=== PATIENT | female | born 1935 | race African-American/Black ===

== ENCOUNTER 2020-03-17 19:49 | Inpatient (IN) | payer MEDICARE, OTHER ==
[~2020-03-17] VITALS: Ht 157.5 cm; Wt 56.7 kg
[2020-03-17] MEDS ORDERED: SODIUM CHLORIDE 0.9% 1,000 ML IV ONE (20:30)
[2020-03-18 00:10] LABS: BASOPHILS % 0.1 % (0.0-2.0); HEMATOCRIT. 36.7 % (36.0-48.0); HEMOGLOBIN. 11.9 g/dL (12.0-16.0); MEAN CORPUSCULAR HEMOGLOBIN 24.8 pg (28.0-32.0); MEAN CORPUSCULAR VOLUME 76.3 fL (81.0-99.0); MEAN PLATELET VOLUME 7.8 fl (7.4-10.4); MONOCYTES % 5.3 % (2.0-8.0); NEUTROPHILS % 83.6 % (40.0-76.0); PLATELET 404 x1000/uL (130-400); RED BLOOD CELL COUNT 4.81 mill/uL (4.2-5.4); RED CELL DISTRIBUTION WIDTH 14.8 % (11.6-14.6)
[2020-03-18 00:14] LABS: CHLORIDE 97 mEq/L (98-107)
[2020-03-18 00:19] LABS: INR 1.1; PARTIAL THROMBOPLASTIN TIME 32.2 sec (23.4-31.0); PROTHROMBIN TIME 11.2 sec (9.6-11.0)
[2020-03-18 09:00] LABS: CLARITY URINE CLEAR (CLEAR); COLOR URINE YELLOW (YELLOW); KETONES URINE 2+ (NEGATIVE); LEUKOCYTE ESTERASE URINE NEGATIVE (NEGATIVE); NITRITE URINE NEGATIVE (NEGATIVE); OCCULT BLOOD URINE TRACE (NEGATIVE); PROTEIN URINE 2+ (NEGATIVE); SPECIFIC GRAVITY URINE 1.047 (1.005-1.030); UROBILINOGEN URINE 0.2 E.U./dL (0.2-1.0)
[2020-03-18] MEDS ORDERED: ONDANSETRON HCL 4MG/2ML INJ IV PRN (12:00)
[2020-03-18] MEDS ORDERED: DOCUSATE SODIUM 100MG CAPSULE PO PRN (12:00)
[2020-03-18] MEDS ORDERED: IPRATROPIUM/ALBUTEROL 0.5-3(2.5)MG/3ML NEB HHN SCH (13:00)
[2020-03-18 13:17] LABS: BASOPHILS % 0.3 % (0.0-2.0); HEMATOCRIT. 33.1 % (36.0-48.0); HEMOGLOBIN. 10.8 g/dL (12.0-16.0); LYMPHOCYTES % 9.5 % (20.0-50.0); MEAN CORPUSCULAR HEMOGLOBIN 24.8 pg (28.0-32.0); MEAN PLATELET VOLUME 7.2 fl (7.4-10.4); NEUTROPHILS % 84.2 % (40.0-76.0); PLATELET 354 x1000/uL (130-400); RED BLOOD CELL COUNT 4.36 mill/uL (4.2-5.4); RED CELL DISTRIBUTION WIDTH 14.6 % (11.6-14.6)
[2020-03-18 13:23] LABS: CHLORIDE 102 mEq/L (98-107)
[2020-03-18 14:00] VITALS: BP 116/69
[2020-03-18 15:10] VITALS: BP 135/69
[2020-03-18 16:00] VITALS: BP 126/69
[2020-03-18] MEDS: CALCIUM CARBONATE 1250MG TABLET (500MG ELEMENTAL CALCIUM) PO SCH ×2 (17:01→18:09)
[2020-03-18] MEDS: CHOLECALCIFEROL (D3) 1000 UNIT TABLET PO SCH (17:01)
[2020-03-18] MEDS: LEVOFLOXACIN 500MG PREMIX 100 ML IV SCH (18:08)
[2020-03-18] MEDS: METOPROLOL TARTRATE 50MG TABLET PO SCH ×2 (18:09→23:49)
[2020-03-18] MEDS: DEXT 5%/0.45% NACL 1000ML 1,000 ML IV SCH (18:10)
[2020-03-18] MEDS: METFORMIN HCL 500MG TABLET PO SCH (18:14)
[2020-03-18 20:00] VITALS: BP 123/67
[2020-03-18] MEDS ORDERED: ENOXAPARIN 40MG/0.4ML SYR SUBCUT SCH (21:00)
[2020-03-18] MEDS: ATORVASTATIN CALCIUM 20MG TABLET PO SCH (23:48)
[2020-03-18] MEDS: METHYLPREDNISOLONE SOD SUCC 40 MG/ML VIAL IV SCH (23:49)
[2020-03-18] MEDS: ENOXAPARIN 30MG/0.3ML SYR SUBCUT SCH (23:55)
[2020-03-19] VITALS: BP 125/66
[2020-03-19] MEDS ORDERED: DEXTROSE 50% WATER 50ML SYRINGE IV PRN (01:45)
[2020-03-19 04:55] VITALS: BP 111/66
[2020-03-19] MEDS: BLOOD SUGAR DIAGNOSTIC STRIP TEST SCH ×3 (06:57→18:04)
[2020-03-19 07:46] LABS: HEMATOCRIT. 31.4 % (36.0-48.0); HEMOGLOBIN. 10.3 g/dL (12.0-16.0); MEAN CORPUSCULAR HEMOGLOBIN 24.8 pg (28.0-32.0); MEAN CORPUSCULAR VOLUME 75.5 fL (81.0-99.0); MEAN PLATELET VOLUME 8.1 fl (7.4-10.4); PLATELET 365 x1000/uL (130-400); RED BLOOD CELL COUNT 4.16 mill/uL (4.2-5.4); RED CELL DISTRIBUTION WIDTH 14.7 % (11.6-14.6)
[2020-03-19] MEDS: INSULIN LISPRO 100 UNITS/ML SUBCUT SCH ×3 (07:51→18:03)
[2020-03-19 07:59] LABS: CHLORIDE 100 mEq/L (98-107)
[2020-03-19 08:00] VITALS: BP 127/77
[2020-03-19 08:02] LABS: AMYLASE 85 IU/L (25-115)
[2020-03-19] MEDS: CHOLECALCIFEROL (D3) 1000 UNIT TABLET PO SCH (09:44)
[2020-03-19] MEDS: CALCIUM CARBONATE 1250MG TABLET (500MG ELEMENTAL CALCIUM) PO SCH ×3 (09:44→18:02)
[2020-03-19] MEDS: METFORMIN HCL 500MG TABLET PO SCH ×2 (09:44→18:02)
[2020-03-19] MEDS: METHYLPREDNISOLONE SOD SUCC 40 MG/ML VIAL IV SCH ×2 (09:44→22:03)
[2020-03-19] MEDS: LOSARTAN POTASSIUM 100 MG TABLET PO SCH (09:45)
[2020-03-19] MEDS: METOPROLOL TARTRATE 50MG TABLET PO SCH ×2 (09:45→22:03)
[2020-03-19 09:47] LABS: PLATELET ESTIMATE NORMAL
[2020-03-19 12:00] VITALS: BP 128/78
[2020-03-19] MEDS: LEVOFLOXACIN 500MG PREMIX 100 ML IV SCH (14:48)
[2020-03-19 16:00] VITALS: BP 128/84
[2020-03-19 20:00] VITALS: BP 120/81
[2020-03-19] MEDS: ATORVASTATIN CALCIUM 20MG TABLET PO SCH (22:03)
[2020-03-19] MEDS: ENOXAPARIN 30MG/0.3ML SYR SUBCUT SCH (22:04)
[2020-03-20] VITALS: BP_SYST 117; BP_SYST 120; BP_DIAS 66; BP_DIAS 81
[2020-03-20] MEDS: BLOOD SUGAR DIAGNOSTIC STRIP TEST SCH ×3 (00:18→17:51)
[2020-03-20] MEDS: INSULIN LISPRO 100 UNITS/ML SUBCUT SCH ×4 (00:26→18:05)
[2020-03-20 04:00] VITALS: BP 125/75
[2020-03-20] MEDS: DEXT 5%/0.45% NACL 1000ML 1,000 ML IV SCH (05:01)
[2020-03-20 06:53] LABS: HEMATOCRIT. 32.8 % (36.0-48.0); HEMOGLOBIN. 10.9 g/dL (12.0-16.0); MEAN CORPUSCULAR VOLUME 75.5 fL (81.0-99.0); MEAN PLATELET VOLUME 7.4 fl (7.4-10.4); PLATELET 412 x1000/uL (130-400); RED BLOOD CELL COUNT 4.35 mill/uL (4.2-5.4); RED CELL DISTRIBUTION WIDTH 14.7 % (11.6-14.6)
[2020-03-20 07:08] LABS: CHLORIDE 102 mEq/L (98-107)
[2020-03-20 08:00] VITALS: BP 123/71
[2020-03-20] MEDS: METFORMIN HCL 500MG TABLET PO SCH ×2 (10:09→18:03)
[2020-03-20] MEDS: CALCIUM CARBONATE 1250MG TABLET (500MG ELEMENTAL CALCIUM) PO SCH ×3 (10:09→16:21)
[2020-03-20] MEDS: METOPROLOL TARTRATE 50MG TABLET PO SCH ×2 (10:09→21:31)
[2020-03-20] MEDS: METHYLPREDNISOLONE SOD SUCC 40 MG/ML VIAL IV SCH ×2 (10:09→16:21)
[2020-03-20] MEDS: CHOLECALCIFEROL (D3) 1000 UNIT TABLET PO SCH (10:10)
[2020-03-20] MEDS: LOSARTAN POTASSIUM 100 MG TABLET PO SCH (10:10)
[2020-03-20 12:00] VITALS: BP 120/74
[2020-03-20] MEDS: ACETAMINOPHEN 325MG TABLET PO PRN (14:30)
[2020-03-20] MEDS: LEVOFLOXACIN 500MG PREMIX 100 ML IV SCH (14:31)
[2020-03-20 16:00] VITALS: BP 128/71
[2020-03-20 18:29] LABS: BG CARBOXYHEMOGLOBIN 0.3 % (0.5-1.5); BG DEOXYHEMOGLOBIN 3.9 % (0.0-5.0); BG FRACTION INSPIRED OXYGEN 99.9; BG HCO3 ACT 22.6 mmol/L (22.0-26.0); BG OXYGEN SATURATION 96.1 % (92.0-98.5); BG OXYHEMOGLOBIN 95.8 % (94.0-97.0); BG PH 7.441 (7.350-7.450); BG PO2 79.7 mmHg (75.0-100.0); BG SAMPLE SITE LEFT BRACHIAL; BG TOTAL HEMOGLOBIN 11.2 g/dL (12.0-18.0); BG VENT MODE MASK - NRB
[2020-03-20 20:00] VITALS: BP 115/75
[2020-03-20] MEDS: ATORVASTATIN CALCIUM 20MG TABLET PO SCH (21:31)
[2020-03-20] MEDS: ENOXAPARIN 30MG/0.3ML SYR SUBCUT SCH (21:31)
[2020-03-20 22:05] LABS: PLATELET ESTIMATE INCREASED
[2020-03-21] VITALS: BP 106/65
[2020-03-21] MEDS: METHYLPREDNISOLONE SOD SUCC 40 MG/ML VIAL IV SCH ×4 (00:29→22:08)
[2020-03-21] MEDS: INSULIN LISPRO 100 UNITS/ML SUBCUT SCH ×4 (00:30→18:38)
[2020-03-21] MEDS: BLOOD SUGAR DIAGNOSTIC STRIP TEST SCH ×4 (00:31→18:24)
[2020-03-21 04:00] VITALS: BP 126/72
[2020-03-21 08:00] VITALS: BP 152/74
[2020-03-21] MEDS: LOSARTAN POTASSIUM 100 MG TABLET PO SCH (09:00)
[2020-03-21] MEDS: METOPROLOL TARTRATE 50MG TABLET PO SCH ×2 (09:00→22:08)
[2020-03-21] MEDS: METFORMIN HCL 500MG TABLET PO SCH ×2 (09:10→18:32)
[2020-03-21 11:12] LABS: HEMATOCRIT. 35.1 % (36.0-48.0); HEMOGLOBIN. 11.3 g/dL (12.0-16.0); MEAN CORPUSCULAR HEMOGLOBIN 24.3 pg (28.0-32.0); MEAN CORPUSCULAR VOLUME 75.5 fL (81.0-99.0); MEAN PLATELET VOLUME 7.6 fl (7.4-10.4); PLATELET 445 x1000/uL (130-400); RED BLOOD CELL COUNT 4.65 mill/uL (4.2-5.4); RED CELL DISTRIBUTION WIDTH 14.9 % (11.6-14.6)
[2020-03-21 11:25] LABS: CHLORIDE 102 mEq/L (98-107)
[2020-03-21 12:00] VITALS: BP 109/68
[2020-03-21 12:38] LABS: BG BASE EXCESS -1.6 mmol/L (-2.0-2.0); BG CARBOXYHEMOGLOBIN 0.3 % (0.5-1.5); BG DEOXYHEMOGLOBIN 2.7 % (0.0-5.0); BG HCO3 ACT 21.8 mmol/L (22.0-26.0); BG METHEMOGLOBIN 0.2 % (0.0-1.5); BG OXYGEN SATURATION 97.3 % (92.0-98.5); BG OXYHEMOGLOBIN 96.8 % (94.0-97.0); BG PCO2 32.8 mmHg (35.0-45.0); BG PH 7.441 (7.350-7.450); BG PO2 96.6 mmHg (75.0-100.0); BG SAMPLE SITE RIGHT BRACHIAL; BG VENT MODE MASK - NRB
[2020-03-21] MEDS: CALCIUM CARBONATE 1250MG TABLET (500MG ELEMENTAL CALCIUM) PO SCH ×3 (13:00→18:32)
[2020-03-21] MEDS: LEVOFLOXACIN 500MG PREMIX 100 ML IV SCH (13:00)
[2020-03-21] MEDS: CHOLECALCIFEROL (D3) 1000 UNIT TABLET PO SCH (13:28)
[2020-03-21] MEDS: DEXT 5%/0.45% NACL 1000ML 1,000 ML IV SCH (13:30)
[2020-03-21 16:00] VITALS: BP 86/48
[2020-03-21 20:00] VITALS: BP 153/91
[2020-03-21] MEDS: ATORVASTATIN CALCIUM 20MG TABLET PO SCH (22:07)
[2020-03-21] MEDS: ENOXAPARIN 30MG/0.3ML SYR SUBCUT SCH (22:09)
[2020-03-21 22:11] LABS: PLATELET ESTIMATE INCREASED
[2020-03-22] VITALS: BP 130/75
[2020-03-22] MEDS: INSULIN LISPRO 100 UNITS/ML SUBCUT SCH ×4 (00:33→18:00)
[2020-03-22] MEDS: BLOOD SUGAR DIAGNOSTIC STRIP TEST SCH ×4 (00:33→18:00)
[2020-03-22 04:00] VITALS: BP 138/102
[2020-03-22] MEDS: METHYLPREDNISOLONE SOD SUCC 40 MG/ML VIAL IV SCH ×3 (06:29→22:56)
[2020-03-22] MEDS: DEXT 5%/0.45% NACL 1000ML 1,000 ML IV SCH (06:30)
[2020-03-22 06:46] LABS: HEMATOCRIT. 31.8 % (36.0-48.0); HEMOGLOBIN. 10.7 g/dL (12.0-16.0); MEAN CORPUSCULAR HEMOGLOBIN 25.2 pg (28.0-32.0); MEAN CORPUSCULAR VOLUME 74.8 fL (81.0-99.0); MEAN PLATELET VOLUME 7.4 fl (7.4-10.4); PLATELET 472 x1000/uL (130-400); RED BLOOD CELL COUNT 4.25 mill/uL (4.2-5.4); RED CELL DISTRIBUTION WIDTH 14.7 % (11.6-14.6)
[2020-03-22 07:31] LABS: CHLORIDE 103 mEq/L (98-107)
[2020-03-22] MEDS: LOSARTAN POTASSIUM 100 MG TABLET PO SCH (10:49)
[2020-03-22] MEDS: METFORMIN HCL 500MG TABLET PO SCH ×2 (10:49→19:06)
[2020-03-22] MEDS: CHOLECALCIFEROL (D3) 1000 UNIT TABLET PO SCH (10:49)
[2020-03-22] MEDS: CALCIUM CARBONATE 1250MG TABLET (500MG ELEMENTAL CALCIUM) PO SCH ×3 (10:50→19:07)
[2020-03-22] MEDS: METOPROLOL TARTRATE 50MG TABLET PO SCH ×2 (10:55→22:57)
[2020-03-22 12:00] VITALS: BP 130/66
[2020-03-22] MEDS: SODIUM CHLORIDE 0.45% 1,000 ML IV SCH (14:34)
[2020-03-22] MEDS: LEVOFLOXACIN 500MG PREMIX 100 ML IV SCH (14:34)
[2020-03-22 16:00] VITALS: BP 133/69
[2020-03-22 16:21] LABS: PLATELET ESTIMATE INCREASED
[2020-03-22 20:00] VITALS: BP 115/70
[2020-03-22 22:01] LABS: CHLORIDE 104 mEq/L (98-107)
[2020-03-22] MEDS: ATORVASTATIN CALCIUM 20MG TABLET PO SCH (22:57)
[2020-03-22] MEDS: ENOXAPARIN 40MG/0.4ML SYR SUBCUT SCH (22:57)
[2020-03-23] VITALS: BP 127/72
[2020-03-23] MEDS: INSULIN LISPRO 100 UNITS/ML SUBCUT SCH ×4 (01:28→17:58)
[2020-03-23 04:00] VITALS: BP 132/83
[2020-03-23] MEDS: BLOOD SUGAR DIAGNOSTIC STRIP TEST SCH ×4 (06:00→17:44)
[2020-03-23 06:45] LABS: HEMATOCRIT. 32.9 % (36.0-48.0); MEAN CORPUSCULAR VOLUME 74.8 fL (81.0-99.0); MEAN PLATELET VOLUME 7.5 fl (7.4-10.4); PLATELET 445 x1000/uL (130-400); RED CELL DISTRIBUTION WIDTH 14.7 % (11.6-14.6)
[2020-03-23] MEDS: METHYLPREDNISOLONE SOD SUCC 40 MG/ML VIAL IV SCH ×2 (07:25→13:21)
[2020-03-23 08:00] VITALS: BP 132/80
[2020-03-23] MEDS: NATEGLINIDE 60MG TABLET PO SCH ×3 (08:10→18:10)
[2020-03-23] MEDS: LOSARTAN POTASSIUM 100 MG TABLET PO SCH (10:04)
[2020-03-23] MEDS: METFORMIN HCL 500MG TABLET PO SCH ×2 (10:04→17:52)
[2020-03-23] MEDS: CALCIUM CARBONATE 1250MG TABLET (500MG ELEMENTAL CALCIUM) PO SCH ×3 (10:04→17:52)
[2020-03-23] MEDS: METOPROLOL TARTRATE 50MG TABLET PO SCH (10:05)
[2020-03-23] MEDS: CHOLECALCIFEROL (D3) 1000 UNIT TABLET PO SCH (10:05)
[2020-03-23] MEDS ORDERED: LEVOFLOXACIN 250MG PREMIX 50 ML IV SCH (14:00)
[2020-03-23] MEDS: SODIUM CHLORIDE 0.45% 1,000 ML IV SCH (14:00)
[2020-03-23 20:00] VITALS: BP 133/66
[2020-03-23 21:22] LABS: PLATELET ESTIMATE INCREASED
[2020-03-24] VITALS: BP 119/83
[2020-03-24] MEDS: ATORVASTATIN CALCIUM 20MG TABLET PO SCH ×2 (00:16→22:00)
[2020-03-24] MEDS: METHYLPREDNISOLONE SOD SUCC 40 MG/ML VIAL IV SCH ×4 (00:17→22:00)
[2020-03-24] MEDS: METOPROLOL TARTRATE 50MG TABLET PO SCH ×3 (00:17→21:00)
[2020-03-24] MEDS: ENOXAPARIN 40MG/0.4ML SYR SUBCUT SCH ×2 (00:19→22:00)
[2020-03-24] MEDS: BLOOD SUGAR DIAGNOSTIC STRIP TEST SCH ×4 (00:19→18:00)
[2020-03-24] MEDS: INSULIN LISPRO 100 UNITS/ML SUBCUT SCH ×4 (00:20→19:04)
[2020-03-24 04:00] VITALS: BP 118/68
[2020-03-24] MEDS: METFORMIN HCL 500MG TABLET PO SCH ×2 (07:05→19:01)
[2020-03-24 08:00] VITALS: BP 119/71
[2020-03-24 08:01] LABS: HEMATOCRIT. 34.4 % (36.0-48.0); HEMOGLOBIN. 11.2 g/dL (12.0-16.0); MEAN CORPUSCULAR HEMOGLOBIN 24.7 pg (28.0-32.0); MEAN CORPUSCULAR VOLUME 75.7 fL (81.0-99.0); MEAN PLATELET VOLUME 7.8 fl (7.4-10.4); PLATELET 481 x1000/uL (130-400); RED BLOOD CELL COUNT 4.55 mill/uL (4.2-5.4); RED CELL DISTRIBUTION WIDTH 14.6 % (11.6-14.6)
[2020-03-24] MEDS: NATEGLINIDE 60MG TABLET PO SCH ×3 (08:10→18:10)
[2020-03-24 08:18] LABS: CHLORIDE 98 mEq/L (98-107)
[2020-03-24] MEDS: CALCIUM CARBONATE 1250MG TABLET (500MG ELEMENTAL CALCIUM) PO SCH ×3 (09:43→19:01)
[2020-03-24] MEDS: LOSARTAN POTASSIUM 100 MG TABLET PO SCH (09:45)
[2020-03-24] MEDS: CHOLECALCIFEROL (D3) 1000 UNIT TABLET PO SCH (09:45)
[2020-03-24 11:38] LABS: BG BASE EXCESS 1.1 mmol/L (-2.0-2.0); BG CARBOXYHEMOGLOBIN 0.3 % (0.5-1.5); BG DEOXYHEMOGLOBIN 1.6 % (0.0-5.0); BG FRACTION INSPIRED OXYGEN 100; BG HCO3 ACT 24.1 mmol/L (22.0-26.0); BG METHEMOGLOBIN 0.3 % (0.0-1.5); BG OXYGEN SATURATION 98.4 % (92.0-98.5); BG OXYHEMOGLOBIN 97.8 % (94.0-97.0); BG PH 7.482 (7.350-7.450); BG PO2 126.9 mmHg (75.0-100.0); BG SAMPLE SITE RIGHT RADIAL; BG TOTAL HEMOGLOBIN 11.4 g/dL (12.0-18.0); BG VENT MODE MASK - NRB
[2020-03-24 12:00] VITALS: BP 139/81
[2020-03-24 16:00] VITALS: BP 121/71
[2020-03-24] MEDS: SODIUM CHLORIDE 0.45% 1,000 ML IV SCH (19:03)
[2020-03-24 19:19] LABS: PLATELET ESTIMATE INCREASED
[2020-03-24 20:00] VITALS: BP 101/63
[2020-03-24 22:13] LABS: BG BASE EXCESS 3.9 mmol/L (-2.0-2.0); BG CARBOXYHEMOGLOBIN 0.3 % (0.5-1.5); BG FRACTION INSPIRED OXYGEN 60; BG HCO3 ACT 27.5 mmol/L (22.0-26.0); BG METHEMOGLOBIN 0.2 % (0.0-1.5); BG OXYHEMOGLOBIN 94.5 % (94.0-97.0); BG PCO2 37.6 mmHg (35.0-45.0); BG PH 7.482 (7.350-7.450); BG PO2 71.8 mmHg (75.0-100.0); BG SAMPLE SITE RIGHT RADIAL; BG TOTAL HEMOGLOBIN 11.9 g/dL (12.0-18.0); BG VENT MODE MASK - SIMPLE
[2020-03-25] VITALS: BP 123/60
[2020-03-25] MEDS: BLOOD SUGAR DIAGNOSTIC STRIP TEST SCH ×3 (00:05→12:00)
[2020-03-25] MEDS: INSULIN LISPRO 100 UNITS/ML SUBCUT SCH ×3 (00:22→13:32)
[2020-03-25 04:00] VITALS: BP 109/67
[2020-03-25 05:36] LABS: CHLORIDE 97 mEq/L (98-107)
[2020-03-25] MEDS: ALBUTEROL 6.7GM HFA INHALER ORI SCH ×3 (06:00→18:00)
[2020-03-25] MEDS: METHYLPREDNISOLONE SOD SUCC 40 MG/ML VIAL IV SCH ×2 (06:03→13:25)
[2020-03-25 07:04] LABS: HEMATOCRIT. 34.7 % (36.0-48.0); HEMOGLOBIN. 11.1 g/dL (12.0-16.0); MEAN CORPUSCULAR HEMOGLOBIN 24.5 pg (28.0-32.0); MEAN CORPUSCULAR VOLUME 76.6 fL (81.0-99.0); MEAN PLATELET VOLUME 7.7 fl (7.4-10.4); PLATELET 455 x1000/uL (130-400); RED BLOOD CELL COUNT 4.52 mill/uL (4.2-5.4); RED CELL DISTRIBUTION WIDTH 14.5 % (11.6-14.6)
[2020-03-25 08:00] VITALS: BP 140/87
[2020-03-25] MEDS: ALENDRONATE SODIUM 35MG TABLET PO SCH (09:00)
[2020-03-25] MEDS: CHOLECALCIFEROL (D3) 1000 UNIT TABLET PO SCH (09:16)
[2020-03-25] MEDS: METFORMIN HCL 500MG TABLET PO SCH ×2 (09:16→17:52)
[2020-03-25] MEDS: METOPROLOL TARTRATE 50MG TABLET PO SCH (09:17)
[2020-03-25] MEDS: CALCIUM CARBONATE 1250MG TABLET (500MG ELEMENTAL CALCIUM) PO SCH ×3 (09:17→17:52)
[2020-03-25] MEDS: LOSARTAN POTASSIUM 100 MG TABLET PO SCH (09:17)
[2020-03-25 12:00] VITALS: BP 132/81
[2020-03-25 16:44] LABS: BG BASE EXCESS 2.4 mmol/L (-2.0-2.0); BG CARBOXYHEMOGLOBIN 0.6 % (0.5-1.5); BG DEOXYHEMOGLOBIN 9.8 % (0.0-5.0); BG HCO3 ACT 24.2 mmol/L (22.0-26.0); BG METHEMOGLOBIN 0.2 % (0.0-1.5); BG OXYGEN SATURATION 90.1 % (92.0-98.5); BG OXYHEMOGLOBIN 89.4 % (94.0-97.0); BG PCO2 28.8 mmHg (35.0-45.0); BG PH 7.542 (7.350-7.450); BG PO2 52.5 mmHg (75.0-100.0); BG SAMPLE SITE RIGHT RADIAL; BG TOTAL HEMOGLOBIN 12.1 g/dL (12.0-18.0); BG VENT MODE ROOM AIR
[2020-03-25] MEDS: SODIUM CHLORIDE 0.45% 1,000 ML IV SCH (17:57)
[2020-03-25 19:37] LABS: PLATELET ESTIMATE INCREASED
[2020-03-25 20:00] VITALS: BP 111/69
[2020-03-26] VITALS (7 sets, daily range): BP systolic 113–142; BP diastolic 73–91
[2020-03-26] MEDS: METOPROLOL TARTRATE 50MG TABLET PO SCH ×3 (00:22→22:08)
[2020-03-26] MEDS: ENOXAPARIN 40MG/0.4ML SYR SUBCUT SCH ×2 (00:22→22:09)
[2020-03-26] MEDS: ATORVASTATIN CALCIUM 20MG TABLET PO SCH ×2 (00:22→22:08)
[2020-03-26] MEDS: METHYLPREDNISOLONE SOD SUCC 40 MG/ML VIAL IV SCH ×2 (00:22→07:24)
[2020-03-26] MEDS: BLOOD SUGAR DIAGNOSTIC STRIP TEST SCH ×4 (00:23→17:34)
[2020-03-26] MEDS: INSULIN LISPRO 100 UNITS/ML SUBCUT SCH ×4 (00:45→17:57)
[2020-03-26] MEDS: CALCIUM CARBONATE 1250MG TABLET (500MG ELEMENTAL CALCIUM) PO SCH ×3 (10:11→17:46)
[2020-03-26] MEDS: METFORMIN HCL 500MG TABLET PO SCH ×2 (10:11→17:46)
[2020-03-26] MEDS: LOSARTAN POTASSIUM 100 MG TABLET PO SCH (10:12)
[2020-03-26] MEDS: CHOLECALCIFEROL (D3) 1000 UNIT TABLET PO SCH (10:12)
[2020-03-26] MEDS ORDERED: PREDNISONE 20MG TABLET PO SCH (11:15)
[2020-03-26] MEDS: ALBUTEROL 6.7GM HFA INHALER ORI SCH ×2 (12:00→18:00)
[2020-03-26] MEDS: SODIUM CHLORIDE 0.45% 1,000 ML IV SCH (13:17)
[2020-03-26] MEDS: PREDNISONE 20MG TABLET PO SCH (17:46)
[2020-03-27] VITALS: BP 132/54
[2020-03-27] MEDS: BLOOD SUGAR DIAGNOSTIC STRIP TEST SCH ×4 (00:53→17:28)
[2020-03-27] MEDS: ALBUTEROL 6.7GM HFA INHALER ORI SCH ×2 (00:58→06:35)
[2020-03-27] MEDS: INSULIN LISPRO 100 UNITS/ML SUBCUT SCH ×5 (00:58→23:48)
[2020-03-27 04:00] VITALS: BP 129/60
[2020-03-27 08:00] VITALS: BP 114/84
[2020-03-27] MEDS: PREDNISONE 20MG TABLET PO SCH ×2 (10:03→17:20)
[2020-03-27] MEDS: LOSARTAN POTASSIUM 100 MG TABLET PO SCH (10:03)
[2020-03-27] MEDS: CHOLECALCIFEROL (D3) 1000 UNIT TABLET PO SCH (10:03)
[2020-03-27] MEDS: CALCIUM CARBONATE 1250MG TABLET (500MG ELEMENTAL CALCIUM) PO SCH ×3 (10:03→17:20)
[2020-03-27] MEDS: METFORMIN HCL 500MG TABLET PO SCH ×2 (10:03→17:28)
[2020-03-27] MEDS: METOPROLOL TARTRATE 50MG TABLET PO SCH ×2 (10:04→21:07)
[2020-03-27 12:00] VITALS: BP 128/73
[2020-03-27] MEDS: SODIUM CHLORIDE 0.45% 1,000 ML IV SCH (17:27)
[2020-03-27 20:00] VITALS: BP 126/83
[2020-03-27] MEDS: ENOXAPARIN 40MG/0.4ML SYR SUBCUT SCH (21:06)
[2020-03-27] MEDS: ATORVASTATIN CALCIUM 20MG TABLET PO SCH (21:06)
[2020-03-28] VITALS: BP 130/86
[2020-03-28] MEDS: BLOOD SUGAR DIAGNOSTIC STRIP TEST SCH ×4 (00:28→17:16)
[2020-03-28 04:00] VITALS: BP 127/87
[2020-03-28] MEDS: ALBUTEROL 6.7GM HFA INHALER ORI SCH ×4 (06:00→18:00)
[2020-03-28] MEDS: INSULIN LISPRO 100 UNITS/ML SUBCUT SCH ×4 (06:00→17:36)
[2020-03-28 06:28] LABS: BASOPHILS % 0.2 % (0.0-2.0); HEMATOCRIT. 33.5 % (36.0-48.0); HEMOGLOBIN. 10.7 g/dL (12.0-16.0); LYMPHOCYTES % 10.7 % (20.0-50.0); MEAN CORPUSCULAR HEMOGLOBIN 24.5 pg (28.0-32.0); MEAN CORPUSCULAR VOLUME 76.5 fL (81.0-99.0); MEAN PLATELET VOLUME 8.2 fl (7.4-10.4); MONOCYTES % 7.5 % (2.0-8.0); NEUTROPHILS % 81.6 % (40.0-76.0); PLATELET 412 x1000/uL (130-400); RED BLOOD CELL COUNT 4.38 mill/uL (4.2-5.4); RED CELL DISTRIBUTION WIDTH 14.5 % (11.6-14.6)
[2020-03-28 06:38] LABS: CHLORIDE 101 mEq/L (98-107)
[2020-03-28 08:00] VITALS: BP 116/69
[2020-03-28] MEDS: METFORMIN HCL 500MG TABLET PO SCH ×2 (10:18→17:35)
[2020-03-28] MEDS: CHOLECALCIFEROL (D3) 1000 UNIT TABLET PO SCH (10:19)
[2020-03-28] MEDS: CALCIUM CARBONATE 1250MG TABLET (500MG ELEMENTAL CALCIUM) PO SCH ×3 (10:20→17:36)
[2020-03-28] MEDS: PREDNISONE 20MG TABLET PO SCH ×2 (10:20→17:36)
[2020-03-28] MEDS: METOPROLOL TARTRATE 50MG TABLET PO SCH ×2 (10:20→21:00)
[2020-03-28] MEDS: LOSARTAN POTASSIUM 100 MG TABLET PO SCH (10:20)
[2020-03-28 12:00] VITALS: BP 125/80
[2020-03-28] MEDS: SODIUM CHLORIDE 0.45% 1,000 ML IV SCH (15:08)
[2020-03-28 16:00] VITALS: BP 129/57
[2020-03-28 20:00] VITALS: BP 105/62
[2020-03-28] MEDS: ATORVASTATIN CALCIUM 20MG TABLET PO SCH (21:33)
[2020-03-28] MEDS: ENOXAPARIN 40MG/0.4ML SYR SUBCUT SCH (21:34)
[2020-03-29] MEDS: INSULIN LISPRO 100 UNITS/ML SUBCUT SCH ×4 (00:13→18:22)
[2020-03-29] MEDS: BLOOD SUGAR DIAGNOSTIC STRIP TEST SCH ×4 (00:13→18:10)
[2020-03-29 08:00] VITALS: BP 127/80
[2020-03-29 08:08] LABS: CHLORIDE 104 mEq/L (98-107)
[2020-03-29 08:45] LABS: HEMATOCRIT. 33.3 % (36.0-48.0); HEMOGLOBIN. 10.7 g/dL (12.0-16.0); MEAN CORPUSCULAR HEMOGLOBIN 24.4 pg (28.0-32.0); MEAN CORPUSCULAR VOLUME 76.2 fL (81.0-99.0); MEAN PLATELET VOLUME 8.3 fl (7.4-10.4); PLATELET 401 x1000/uL (130-400); RED BLOOD CELL COUNT 4.37 mill/uL (4.2-5.4); RED CELL DISTRIBUTION WIDTH 14.7 % (11.6-14.6)
[2020-03-29] MEDS: METFORMIN HCL 500MG TABLET PO SCH ×2 (08:48→18:18)
[2020-03-29] MEDS: LOSARTAN POTASSIUM 100 MG TABLET PO SCH (08:49)
[2020-03-29] MEDS: CHOLECALCIFEROL (D3) 1000 UNIT TABLET PO SCH (08:49)
[2020-03-29] MEDS: CALCIUM CARBONATE 1250MG TABLET (500MG ELEMENTAL CALCIUM) PO SCH ×3 (08:49→18:18)
[2020-03-29] MEDS: PREDNISONE 20MG TABLET PO SCH ×2 (08:49→18:18)
[2020-03-29] MEDS: METOPROLOL TARTRATE 50MG TABLET PO SCH ×2 (08:49→21:53)
[2020-03-29 12:00] VITALS: BP 109/65
[2020-03-29] MEDS: ALBUTEROL 6.7GM HFA INHALER ORI SCH ×2 (12:00→18:00)
[2020-03-29] MEDS: NATEGLINIDE 60MG TABLET PO SCH ×2 (12:50→17:50)
[2020-03-29 13:07] LABS: PLATELET ESTIMATE SLIGHTLY INCREASED
[2020-03-29] MEDS: SODIUM CHLORIDE 0.45% 1,000 ML IV SCH (14:00)
[2020-03-29] MEDS: ACETAMINOPHEN 325MG TABLET PO PRN (18:18)
[2020-03-29 21:34] LABS: BG BASE EXCESS 3.5 mmol/L (-2.0-2.0); BG CARBOXYHEMOGLOBIN 0.3 % (0.5-1.5); BG DEOXYHEMOGLOBIN 9.4 % (0.0-5.0); BG FRACTION INSPIRED OXYGEN 21; BG HCO3 ACT 26.4 mmol/L (22.0-26.0); BG METHEMOGLOBIN 0.4 % (0.0-1.5); BG OXYGEN SATURATION 90.5 % (92.0-98.5); BG OXYHEMOGLOBIN 89.9 % (94.0-97.0); BG PH 7.508 (7.350-7.450); BG PO2 55.1 mmHg (75.0-100.0); BG SAMPLE SITE RIGHT RADIAL; BG TOTAL HEMOGLOBIN 11.1 g/dL (12.0-18.0); BG VENT MODE ROOM AIR
[2020-03-29 21:40] VITALS: BP 117/83
[2020-03-29] MEDS ORDERED: INSULIN REGULAR (HUMULIN R) 300UNITS/3ML VIAL SUBCUT SCH (21:45)
[2020-03-29] MEDS: ATORVASTATIN CALCIUM 20MG TABLET PO SCH (21:53)
[2020-03-29] MEDS: ENOXAPARIN 40MG/0.4ML SYR SUBCUT SCH (21:58)
[2020-03-29] MEDS ORDERED: BLOOD SUGAR DIAGNOSTIC STRIP TEST SCH (22:00)
[2020-03-29] MEDS ORDERED: INSULIN LISPRO (HIGH DOSE) 100 UNITS/ML SUBCUT SCH (22:00)
[2020-03-29] MEDS ORDERED: DEXTROSE 50% WATER 50ML SYRINGE IV PRN (22:15)
[2020-03-30] MEDS: ALBUTEROL 6.7GM HFA INHALER ORI SCH
[2020-03-30] MEDS: BLOOD SUGAR DIAGNOSTIC STRIP TEST SCH ×4 (00:35→17:42)
[2020-03-30] MEDS: INSULIN LISPRO (HIGH DOSE) 100 UNITS/ML SUBCUT SCH ×4 (00:44→17:43)
[2020-03-30] MEDS: PREDNISONE 20MG TABLET PO SCH ×2 (05:49→17:42)
[2020-03-30 06:41] LABS: CHLORIDE 101 mEq/L (98-107)
[2020-03-30 07:05] LABS: BASOPHILS % 0.5 % (0.0-2.0); HEMATOCRIT. 33.2 % (36.0-48.0); HEMOGLOBIN. 10.5 g/dL (12.0-16.0); LYMPHOCYTES % 10.2 % (20.0-50.0); MEAN CORPUSCULAR HEMOGLOBIN 24.3 pg (28.0-32.0); MEAN CORPUSCULAR VOLUME 76.9 fL (81.0-99.0); MEAN PLATELET VOLUME 8.6 fl (7.4-10.4); MONOCYTES % 5.5 % (2.0-8.0); NEUTROPHILS % 83.8 % (40.0-76.0); PLATELET 414 x1000/uL (130-400); RED BLOOD CELL COUNT 4.32 mill/uL (4.2-5.4); RED CELL DISTRIBUTION WIDTH 15.1 % (11.6-14.6)
[2020-03-30] MEDS: NATEGLINIDE 60MG TABLET PO SCH ×3 (07:50→17:29)
[2020-03-30 08:00] VITALS: BP 128/81
[2020-03-30] MEDS: CHOLECALCIFEROL (D3) 1000 UNIT TABLET PO SCH (08:24)
[2020-03-30] MEDS: CALCIUM CARBONATE 1250MG TABLET (500MG ELEMENTAL CALCIUM) PO SCH ×3 (08:24→17:41)
[2020-03-30] MEDS: METOPROLOL TARTRATE 50MG TABLET PO SCH ×2 (08:24→21:44)
[2020-03-30] MEDS: LOSARTAN POTASSIUM 100 MG TABLET PO SCH (08:24)
[2020-03-30] MEDS: METFORMIN HCL 500MG TABLET PO SCH ×2 (08:25→17:41)
[2020-03-30] MEDS: SODIUM CHLORIDE 0.45% 1,000 ML IV SCH (13:53)
[2020-03-30 20:00] VITALS: BP 118/77
[2020-03-30] MEDS: ATORVASTATIN CALCIUM 20MG TABLET PO SCH (21:44)
[2020-03-30] MEDS: ENOXAPARIN 40MG/0.4ML SYR SUBCUT SCH (21:50)
[2020-03-31] MEDS: ALBUTEROL 6.7GM HFA INHALER ORI SCH ×4 (03:00→17:26)
[2020-03-31] MEDS: INSULIN LISPRO (HIGH DOSE) 100 UNITS/ML SUBCUT SCH ×4 (03:05→17:25)
[2020-03-31] MEDS: BLOOD SUGAR DIAGNOSTIC STRIP TEST SCH ×4 (06:00→18:30)
[2020-03-31] MEDS: NATEGLINIDE 60MG TABLET PO SCH ×3 (07:50→16:48)
[2020-03-31 08:00] VITALS: BP 132/62
[2020-03-31] MEDS: METFORMIN HCL 500MG TABLET PO SCH ×2 (08:31→17:23)
[2020-03-31] MEDS: CHOLECALCIFEROL (D3) 1000 UNIT TABLET PO SCH (08:31)
[2020-03-31] MEDS: PREDNISONE 20MG TABLET PO SCH ×2 (08:31→17:23)
[2020-03-31] MEDS: METOPROLOL TARTRATE 50MG TABLET PO SCH ×2 (08:31→20:39)
[2020-03-31] MEDS: CALCIUM CARBONATE 1250MG TABLET (500MG ELEMENTAL CALCIUM) PO SCH ×3 (08:31→17:00)
[2020-03-31] MEDS: LOSARTAN POTASSIUM 100 MG TABLET PO SCH (08:32)
[2020-03-31] MEDS: SODIUM CHLORIDE 0.45% 1,000 ML IV SCH (14:00)
[2020-03-31 20:16] VITALS: BP 102/53
[2020-03-31] MEDS: ENOXAPARIN 40MG/0.4ML SYR SUBCUT SCH (20:40)
[2020-03-31] MEDS: ATORVASTATIN CALCIUM 20MG TABLET PO SCH (20:40)
[2020-04-01] MEDS: INSULIN LISPRO (HIGH DOSE) 100 UNITS/ML SUBCUT SCH ×6 (01:24→23:38)
[2020-04-01] MEDS: ALBUTEROL 6.7GM HFA INHALER ORI SCH ×2 (01:25→05:44)
[2020-04-01] MEDS: BLOOD SUGAR DIAGNOSTIC STRIP TEST SCH ×6 (05:43→23:37)
[2020-04-01 08:30] VITALS: BP 124/80
[2020-04-01] MEDS: NATEGLINIDE 60MG TABLET PO SCH ×3 (08:50→17:58)
[2020-04-01] MEDS: METFORMIN HCL 500MG TABLET PO SCH ×2 (08:50→17:58)
[2020-04-01] MEDS: METOPROLOL TARTRATE 50MG TABLET PO SCH ×2 (08:51→21:02)
[2020-04-01] MEDS: LOSARTAN POTASSIUM 100 MG TABLET PO SCH (08:51)
[2020-04-01] MEDS: CHOLECALCIFEROL (D3) 1000 UNIT TABLET PO SCH (08:51)
[2020-04-01] MEDS: CALCIUM CARBONATE 1250MG TABLET (500MG ELEMENTAL CALCIUM) PO SCH ×3 (08:51→17:58)
[2020-04-01] MEDS: PREDNISONE 20MG TABLET PO SCH ×2 (11:23→17:58)
[2020-04-01] MEDS: ALENDRONATE SODIUM 35MG TABLET PO SCH (13:37)
[2020-04-01] MEDS: SODIUM CHLORIDE 0.45% 1,000 ML IV SCH ×2 (13:40→14:57)
[2020-04-01 20:42] VITALS: BP 119/76
[2020-04-01] MEDS: ENOXAPARIN 40MG/0.4ML SYR SUBCUT SCH (21:02)
[2020-04-01] MEDS: ATORVASTATIN CALCIUM 20MG TABLET PO SCH (21:02)
[2020-04-02 04:46] VITALS: BP 123/75
[2020-04-02] MEDS: BLOOD SUGAR DIAGNOSTIC STRIP TEST SCH (06:46)
[2020-04-02 08:00] VITALS: BP 123/74
[2020-04-02] MEDS: CHOLECALCIFEROL (D3) 1000 UNIT TABLET PO SCH (08:23)
[2020-04-02] MEDS: CALCIUM CARBONATE 1250MG TABLET (500MG ELEMENTAL CALCIUM) PO SCH (08:23)
[2020-04-02] MEDS: NATEGLINIDE 60MG TABLET PO SCH (08:24)
[2020-04-02] MEDS: METOPROLOL TARTRATE 50MG TABLET PO SCH (08:24)
[2020-04-02] MEDS: LOSARTAN POTASSIUM 100 MG TABLET PO SCH (08:24)
[2020-04-02] MEDS: METFORMIN HCL 500MG TABLET PO SCH (08:24)
[2020-04-02] MEDS: INSULIN LISPRO (HIGH DOSE) 100 UNITS/ML SUBCUT SCH (08:25)
[2020-04-02] MEDS: PREDNISONE 20MG TABLET PO SCH (08:26)
== END 2020-04-02 11:31 | disposition home or self-care (01) | DRG 871 ==
LOC: ER 19:49 → 7WST 21:43 → SUPCPDRO 03-18 00:56 → ENRESERV 03-18 11:06 → 6WST 03-28 20:19
PROVIDERS: ADMIT Internal Medicine Rheumatology; ATTEND Internal Medicine Rheumatology
DX: A41.89 Other specified sepsis (principal); U07.1 COVID-19; J96.01 Acute respiratory failure with hypoxia; J12.82 Pneumonia due to coronavirus disease 2019; K57.91 Diverticulosis of intestine, part unspecified, without perforation or abscess with bleeding; E87.1 Hypo-osmolality and hyponatremia; D86.86 Sarcoid arthropathy; M19.90 Unspecified osteoarthritis, unspecified site; E11.9 Type 2 diabetes mellitus without complications; B97.89 Other viral agents as the cause of diseases classified elsewhere; I10 Essential (primary) hypertension; M50.30 Other cervical disc degeneration, unspecified cervical region; M51.37 Other intervertebral disc degeneration, lumbosacral region; M81.0 Age-related osteoporosis without current pathological fracture; E78.5 Hyperlipidemia, unspecified; R74.8 Abnormal levels of other serum enzymes; R65.20 Severe sepsis without septic shock; Z83.3 Family history of diabetes mellitus; Z79.899 Other long term (current) drug therapy; Z87.440 Personal history of urinary (tract) infections; Z99.81 Dependence on supplemental oxygen
CPT/HCPCS: 36415; 36600; 71045; 74177; 80048; 80053; 81003; 82150; 82375; 82728; 82805; 82962; 83605; 83880; 84134; 84439; 85025; 85379; 85651; 86140; 86850; 86900; 93970; 99291; C1893; J1650; J1815; J1956; J2405; J2920; J7030; J7512; U0003

== ENCOUNTER 2020-09-13 10:02 | Inpatient (IN) | payer MEDICARE, OTHER ==
[~2020-09-13] VITALS: Ht 157.5 cm; Wt 57.2 kg
[2020-09-13] MEDS ORDERED: SODIUM CHLORIDE 0.9% 1000ML BAG (SEPSIS BOLUS) IV ONE (10:30)
[2020-09-13 11:01] LABS: BASOPHILS % 0.4 % (0.0-2.0); EOSINOPHILS % 0.2 % (0.0-5.0); HEMATOCRIT. 31.8 % (36.0-48.0); HEMOGLOBIN. 10.3 g/dL (12.0-16.0); LYMPHOCYTES % 21.2 % (20.0-50.0); MEAN CORPUSCULAR HEMOGLOBIN 25.1 pg (28.0-32.0); MEAN CORPUSCULAR VOLUME 77.5 fL (81.0-99.0); MEAN PLATELET VOLUME 8.3 fl (7.4-10.4); MONOCYTES % 5.9 % (2.0-8.0); NEUTROPHILS % 72.3 % (40.0-76.0); PLATELET 285 x1000/uL (130-400); RED CELL DISTRIBUTION WIDTH 15.4 % (11.6-14.6)
[2020-09-13 11:02] LABS: CHLORIDE 109 mEq/L (98-107)
[2020-09-13] MEDS ORDERED: ONDANSETRON HCL 4MG/2ML INJ IV PRN (12:15)
[2020-09-13] MEDS: SODIUM CHLORIDE 0.45% 1,000 ML IV SCH (12:30)
[2020-09-13] MEDS: PANTOPRAZOLE SODIUM 40 MG/VIAL IV SCH ×2 (13:21→14:10)
[2020-09-13] MEDS ORDERED: IOHEXOL-300 100 ML BOTTLE ONE (14:40)
[2020-09-13 15:33] LABS: TOTAL IRON BINDING CAPACITY 313 ug/dL (250-450)
[2020-09-13 16:09] LABS: VITAMIN B12 SERUM 167 pg/mL (211-911)
[2020-09-13 16:13] LABS: FOLIC ACID (FOLATE) SERUM > 20.00 ng/mL (>5.38)
[2020-09-13 16:37] LABS: FERRITIN 14 ng/mL (10-291)
[2020-09-13] MEDS ORDERED: DEXTROSE 50% WATER 50ML SYRINGE IV PRN (19:30)
[2020-09-13 20:00] VITALS: BP 123/78
[2020-09-13 21:00] VITALS: BP 116/67
[2020-09-13] MEDS: INSULIN LISPRO 100 UNITS/ML SUBCUT SCH (21:00)
[2020-09-13] MEDS: BLOOD SUGAR DIAGNOSTIC STRIP TEST SCH (21:19)
[2020-09-13 21:40] LABS: HEMATOCRIT 23.8 % (36.0-48.0); HEMOGLOBIN 7.5 g/dL (12.0-16.0)
[2020-09-14] VITALS (11 sets, daily range): BP systolic 99–151; BP diastolic 65–92
[2020-09-14] MEDS: SODIUM CHLORIDE 0.45% 1,000 ML IV SCH ×2 (01:50→17:01)
[2020-09-14] MEDS ORDERED: AMLO5TAB88 PO (04:53)
[2020-09-14] MEDS: BLOOD SUGAR DIAGNOSTIC STRIP TEST SCH ×4 (05:57→20:37)
[2020-09-14] MEDS: INSULIN LISPRO 100 UNITS/ML SUBCUT SCH ×4 (05:57→21:32)
[2020-09-14] MEDS ORDERED: METF-415 PO (06:01)
[2020-09-14] MEDS ORDERED: EMPA10TA PO (06:01)
[2020-09-14] MEDS ORDERED: ATOR20TA65 PO (06:01)
[2020-09-14] MEDS ORDERED: METO-539 PO (06:01)
[2020-09-14] MEDS ORDERED: NATE120T PO ×2 (06:01→17:43)
[2020-09-14 07:11] LABS: CHLORIDE 110 mEq/L (98-107)
[2020-09-14 07:14] LABS: BASOPHILS % 0.6 % (0.0-2.0); EOSINOPHILS % 0.9 % (0.0-5.0); HEMATOCRIT. 25.3 % (36.0-48.0); HEMOGLOBIN. 8.3 g/dL (12.0-16.0); LYMPHOCYTES % 24.4 % (20.0-50.0); MEAN CORPUSCULAR VOLUME 79.6 fL (81.0-99.0); MEAN PLATELET VOLUME 8.3 fl (7.4-10.4); MONOCYTES % 9.6 % (2.0-8.0); NEUTROPHILS % 64.5 % (40.0-76.0); PLATELET 180 x1000/uL (130-400); RED BLOOD CELL COUNT 3.17 mill/uL (4.2-5.4); RED CELL DISTRIBUTION WIDTH 16.6 % (11.6-14.6)
[2020-09-14 07:15] LABS: INR 1.1; PROTHROMBIN TIME 11.3 sec (9.6-11.0)
[2020-09-14 12:13] LABS: HEMATOCRIT 25.7 % (36.0-48.0); HEMOGLOBIN 8.3 g/dL (12.0-16.0)
[2020-09-14] MEDS: PANTOPRAZOLE SODIUM 40 MG/VIAL IV SCH ×2 (12:27→20:37)
[2020-09-14] MEDS ORDERED: SORBITOL 70% SOLN 30ML PO NR ×2 (16:00→20:00)
[2020-09-14] MEDS ORDERED: AMLO10TA80 MT (17:39)
[2020-09-14] MEDS ORDERED: METO-539 MT (17:43)
[2020-09-14] MEDS ORDERED: METF500S7 PO (17:43)
[2020-09-14] MEDS ORDERED: AMLO2.5T2 MT (17:43)
[2020-09-14] MEDS ORDERED: EMPA10TA MT (17:43)
[2020-09-14 20:47] LABS: HEMATOCRIT 24.5 % (36.0-48.0); HEMOGLOBIN 8.2 g/dL (12.0-16.0)
[2020-09-15] MEDS: SODIUM CHLORIDE 0.45% 1,000 ML IV SCH ×2 (04:30→17:18)
[2020-09-15] MEDS: BLOOD SUGAR DIAGNOSTIC STRIP TEST SCH ×4 (06:24→21:00)
[2020-09-15] MEDS: INSULIN LISPRO 100 UNITS/ML SUBCUT SCH ×4 (06:25→21:00)
[2020-09-15 06:37] LABS: BASOPHILS % 0.6 % (0.0-2.0); EOSINOPHILS % 1.9 % (0.0-5.0); HEMATOCRIT. 23.8 % (36.0-48.0); HEMOGLOBIN. 7.9 g/dL (12.0-16.0); LYMPHOCYTES % 26.2 % (20.0-50.0); MEAN CORPUSCULAR HEMOGLOBIN 26.3 pg (28.0-32.0); MEAN CORPUSCULAR VOLUME 79.2 fL (81.0-99.0); MEAN PLATELET VOLUME 8.6 fl (7.4-10.4); MONOCYTES % 9.7 % (2.0-8.0); NEUTROPHILS % 61.6 % (40.0-76.0); PLATELET 186 x1000/uL (130-400); RED CELL DISTRIBUTION WIDTH 16.6 % (11.6-14.6)
[2020-09-15 06:51] LABS: PARTIAL THROMBOPLASTIN TIME 25.4 sec (23.4-31.0); PROTHROMBIN TIME 11.1 sec (9.6-11.0)
[2020-09-15 06:56] LABS: CHLORIDE 114 mEq/L (98-107)
[2020-09-15 08:00] VITALS: BP 116/73
[2020-09-15] MEDS: PANTOPRAZOLE SODIUM 40 MG/VIAL IV SCH ×2 (08:25→22:13)
[2020-09-15] MEDS ORDERED: METO-539 MT (11:52)
[2020-09-15 12:00] VITALS: BP 124/71
[2020-09-15] MEDS: ACETAMINOPHEN 325MG TABLET PO PRN ×2 (12:05→22:18)
[2020-09-15] MEDS: METOPROLOL TARTRATE 5MG/5ML VIAL IV SCH ×2 (13:28→22:14)
[2020-09-15 16:00] VITALS: BP 124/67
[2020-09-15 17:41] LABS: CLARITY URINE CLEAR (CLEAR); COLOR URINE YELLOW (YELLOW); KETONES URINE 1+ (NEGATIVE); LEUKOCYTE ESTERASE URINE TRACE (NEGATIVE); NITRITE URINE NEGATIVE (NEGATIVE); OCCULT BLOOD URINE NEGATIVE (NEGATIVE); PROTEIN URINE NEGATIVE (NEGATIVE); SPECIFIC GRAVITY URINE 1.023 (1.005-1.030); UROBILINOGEN URINE 0.2 E.U./dL (0.2-1.0)
[2020-09-15 19:36] LABS: HEMATOCRIT 22.4 % (36.0-48.0); HEMOGLOBIN 7.5 g/dL (12.0-16.0)
[2020-09-15 20:00] VITALS: BP 113/55
[2020-09-16] VITALS (11 sets, daily range): BP systolic 91–126; BP diastolic 46–69
[2020-09-16 00:47] LABS: HEMATOCRIT 20.2 % (36.0-48.0); HEMOGLOBIN 6.6 g/dL (12.0-16.0)
[2020-09-16] MEDS: SODIUM CHLORIDE 0.45% 1,000 ML IV SCH ×3 (04:01→15:08)
[2020-09-16] MEDS: ACETAMINOPHEN 325MG TABLET PO PRN ×2 (06:11→09:00)
[2020-09-16] MEDS: METOPROLOL TARTRATE 5MG/5ML VIAL IV SCH ×3 (06:27→21:23)
[2020-09-16] MEDS: INSULIN LISPRO 100 UNITS/ML SUBCUT SCH ×4 (06:28→21:00)
[2020-09-16] MEDS: BLOOD SUGAR DIAGNOSTIC STRIP TEST SCH ×4 (06:28→21:23)
[2020-09-16 08:07] LABS: HEMATOCRIT. 23.4 % (36.0-48.0); MEAN CORPUSCULAR HEMOGLOBIN 27.3 pg (28.0-32.0); MEAN PLATELET VOLUME 8.6 fl (7.4-10.4); PLATELET 145 x1000/uL (130-400); RED BLOOD CELL COUNT 2.93 mill/uL (4.2-5.4); RED CELL DISTRIBUTION WIDTH 16.4 % (11.6-14.6)
[2020-09-16 08:15] LABS: CHLORIDE 108 mEq/L (98-107)
[2020-09-16] MEDS: PANTOPRAZOLE SODIUM 40 MG/VIAL IV SCH ×2 (09:00→21:23)
[2020-09-16] MEDS ORDERED: MAGNESIUM 2 G PREMIX 50 ML IV NR (12:00)
[2020-09-16] MEDS ORDERED: NA PHOS,M-B/NA PHOS,DI-BA ENEMA 118ML PR NR (12:00)
[2020-09-16] MEDS: CEFTRIAXONE 1,000 MG in DEXTROSE 5% WATER 50 ML IV SCH (12:32)
[2020-09-16 13:22] LABS: HEMATOCRIT 26.3 % (36.0-48.0); HEMOGLOBIN 8.8 g/dL (12.0-16.0)
[2020-09-16 15:57] LABS: PLATELET ESTIMATE NORMAL
[2020-09-17] VITALS: BP 121/61
[2020-09-17] MEDS: SODIUM CHLORIDE 0.45% 1,000 ML IV SCH ×3 (02:15→23:30)
[2020-09-17 04:00] VITALS: BP 104/57
[2020-09-17] MEDS: METOPROLOL TARTRATE 5MG/5ML VIAL IV SCH ×3 (05:36→21:12)
[2020-09-17] MEDS: BLOOD SUGAR DIAGNOSTIC STRIP TEST SCH ×4 (06:17→21:08)
[2020-09-17] MEDS: INSULIN LISPRO 100 UNITS/ML SUBCUT SCH ×4 (06:17→21:11)
[2020-09-17 06:57] LABS: HEMATOCRIT. 23.1 % (36.0-48.0); HEMOGLOBIN. 7.8 g/dL (12.0-16.0); MEAN CORPUSCULAR HEMOGLOBIN 27.1 pg (28.0-32.0); MEAN PLATELET VOLUME 8.8 fl (7.4-10.4); PLATELET 154 x1000/uL (130-400); RED BLOOD CELL COUNT 2.89 mill/uL (4.2-5.4); RED CELL DISTRIBUTION WIDTH 16.5 % (11.6-14.6)
[2020-09-17 07:11] LABS: CHLORIDE 107 mEq/L (98-107)
[2020-09-17 08:00] VITALS: BP 126/68
[2020-09-17] MEDS: PANTOPRAZOLE SODIUM 40 MG/VIAL IV SCH ×2 (09:06→21:12)
[2020-09-17] MEDS ORDERED: MIDAZOLAM HCL 5 MG/5 ML VIAL IV PRN (10:38)
[2020-09-17] MEDS ORDERED: FENTANYL CITRATE/PF 50MCG/ML 2ML VIAL ONE (10:38)
[2020-09-17] MEDS ORDERED: MIDAZOLAM HCL 5 MG/5 ML VIAL ONE (10:38)
[2020-09-17 12:20] VITALS: BP 118/68
[2020-09-17] MEDS: MAGNESIUM 2 G PREMIX 50 ML IV SCH (12:40)
[2020-09-17] MEDS ORDERED: BACTERIOSTATIC SODIUM CHLORIDE 0.9% 30ML VIAL IJ ONE (13:00)
[2020-09-17 14:01] LABS: PLATELET ESTIMATE NORMAL
[2020-09-17] MEDS: CEFTRIAXONE 1,000 MG in DEXTROSE 5% WATER 50 ML IV SCH (14:46)
[2020-09-17 16:00] VITALS: BP 112/68
[2020-09-17] MEDS: CEFEPIME 1,000 MG in DEXTROSE 5% WATER 50 ML IV SCH (18:16)
[2020-09-17 20:00] VITALS: BP 105/47
[2020-09-17] MEDS: METRONIDAZOLE 500MG TABLET PO SCH (21:12)
[2020-09-18] VITALS: BP 100/60
[2020-09-18 04:00] VITALS: BP 111/63
[2020-09-18] MEDS: METOPROLOL TARTRATE 5MG/5ML VIAL IV SCH ×3 (06:18→22:34)
[2020-09-18] MEDS: BLOOD SUGAR DIAGNOSTIC STRIP TEST SCH ×4 (06:18→21:12)
[2020-09-18] MEDS: INSULIN LISPRO 100 UNITS/ML SUBCUT SCH ×4 (06:18→21:13)
[2020-09-18] MEDS: CEFEPIME 1,000 MG in DEXTROSE 5% WATER 50 ML IV SCH ×2 (06:18→16:35)
[2020-09-18 07:46] LABS: BASOPHILS % 0.3 % (0.0-2.0); EOSINOPHILS % 1.2 % (0.0-5.0); HEMOGLOBIN. 8.1 g/dL (12.0-16.0); LYMPHOCYTES % 19.3 % (20.0-50.0); MEAN CORPUSCULAR HEMOGLOBIN 26.9 pg (28.0-32.0); MEAN CORPUSCULAR VOLUME 79.7 fL (81.0-99.0); MEAN PLATELET VOLUME 8.2 fl (7.4-10.4); MONOCYTES % 12.7 % (2.0-8.0); NEUTROPHILS % 66.5 % (40.0-76.0); PLATELET 229 x1000/uL (130-400); RED BLOOD CELL COUNT 3.02 mill/uL (4.2-5.4); RED CELL DISTRIBUTION WIDTH 16.7 % (11.6-14.6)
[2020-09-18 07:58] LABS: CHLORIDE 107 mEq/L (98-107)
[2020-09-18 08:00] VITALS: BP 116/66
[2020-09-18] MEDS: METRONIDAZOLE 500MG TABLET PO SCH ×2 (09:12→21:11)
[2020-09-18] MEDS: MAGNESIUM 2 G PREMIX 50 ML IV SCH (09:12)
[2020-09-18] MEDS: PANTOPRAZOLE SODIUM 40 MG/VIAL IV SCH ×2 (09:12→21:11)
[2020-09-18 12:00] VITALS: BP 116/71
[2020-09-18] MEDS: SODIUM CHLORIDE 0.45% 1,000 ML IV SCH ×2 (12:07→22:36)
[2020-09-18] MEDS ORDERED: LEVO500T89 MT (15:26)
[2020-09-18 16:00] VITALS: BP 105/64
[2020-09-18 20:00] VITALS: BP_SYST 164; BP_SYST 171; BP_DIAS 77; BP_DIAS 79
[2020-09-18] MEDS: IRON SUCROSE COMPLEX 100 MG/5 ML ML IV SCH (21:11)
[2020-09-19] VITALS: BP 122/62
[2020-09-19 04:00] VITALS: BP 117/65
[2020-09-19] MEDS: CEFEPIME 1,000 MG in DEXTROSE 5% WATER 50 ML IV SCH ×2 (06:48→17:31)
[2020-09-19] MEDS: METOPROLOL TARTRATE 5MG/5ML VIAL IV SCH ×3 (06:48→21:20)
[2020-09-19] MEDS: BLOOD SUGAR DIAGNOSTIC STRIP TEST SCH ×4 (06:48→21:22)
[2020-09-19] MEDS: INSULIN LISPRO 100 UNITS/ML SUBCUT SCH ×4 (06:49→21:23)
[2020-09-19 08:00] VITALS: BP 132/71
[2020-09-19] MEDS: PANTOPRAZOLE SODIUM 40 MG/VIAL IV SCH ×2 (09:02→21:16)
[2020-09-19] MEDS: METRONIDAZOLE 500MG TABLET PO SCH ×2 (09:02→21:21)
[2020-09-19] MEDS: MAGNESIUM 2 G PREMIX 50 ML IV SCH (09:02)
[2020-09-19] MEDS: SODIUM CHLORIDE 0.45% 1,000 ML IV SCH ×2 (09:03→21:22)
[2020-09-19 12:00] VITALS: BP 118/68
[2020-09-19 13:00] LABS: BASOPHILS % 0.9 % (0.0-2.0); EOSINOPHILS % 1.4 % (0.0-5.0); HEMATOCRIT. 21.6 % (36.0-48.0); HEMOGLOBIN. 7.6 g/dL (12.0-16.0); LYMPHOCYTES % 23.2 % (20.0-50.0); MEAN CORPUSCULAR HEMOGLOBIN 27.8 pg (28.0-32.0); MEAN CORPUSCULAR VOLUME 78.7 fL (81.0-99.0); MEAN PLATELET VOLUME 7.9 fl (7.4-10.4); MONOCYTES % 12.5 % (2.0-8.0); PLATELET 242 x1000/uL (130-400); RED BLOOD CELL COUNT 2.74 mill/uL (4.2-5.4); RED CELL DISTRIBUTION WIDTH 16.4 % (11.6-14.6)
[2020-09-19 13:07] LABS: CHLORIDE 108 mEq/L (98-107)
[2020-09-19 16:00] VITALS: BP 117/74
[2020-09-19 20:00] VITALS: BP 125/70
[2020-09-19] MEDS: IRON SUCROSE COMPLEX 100 MG/5 ML ML IV SCH (21:20)
[2020-09-20] VITALS: BP 138/87
[2020-09-20 04:00] VITALS: BP 120/68
[2020-09-20] MEDS: CEFEPIME 1,000 MG in DEXTROSE 5% WATER 50 ML IV SCH ×2 (06:19→19:37)
[2020-09-20] MEDS: BLOOD SUGAR DIAGNOSTIC STRIP TEST SCH ×4 (06:20→21:40)
[2020-09-20] MEDS: METOPROLOL TARTRATE 5MG/5ML VIAL IV SCH ×3 (06:20→21:56)
[2020-09-20] MEDS: INSULIN LISPRO 100 UNITS/ML SUBCUT SCH ×4 (06:21→22:07)
[2020-09-20 07:45] LABS: BASOPHILS % 0.7 % (0.0-2.0); HEMATOCRIT. 23.3 % (36.0-48.0); HEMOGLOBIN. 7.8 g/dL (12.0-16.0); LYMPHOCYTES % 24.3 % (20.0-50.0); MEAN CORPUSCULAR HEMOGLOBIN 26.4 pg (28.0-32.0); MEAN CORPUSCULAR VOLUME 79.3 fL (81.0-99.0); MEAN PLATELET VOLUME 7.9 fl (7.4-10.4); MONOCYTES % 14.5 % (2.0-8.0); NEUTROPHILS % 57.5 % (40.0-76.0); PLATELET 315 x1000/uL (130-400); RED BLOOD CELL COUNT 2.94 mill/uL (4.2-5.4); RED CELL DISTRIBUTION WIDTH 16.7 % (11.6-14.6)
[2020-09-20 07:46] LABS: CHLORIDE 106 mEq/L (98-107)
[2020-09-20 08:30] VITALS: BP 129/65
[2020-09-20] MEDS: METRONIDAZOLE 500MG TABLET PO SCH ×2 (09:23→21:40)
[2020-09-20] MEDS: PANTOPRAZOLE SODIUM 40 MG/VIAL IV SCH ×2 (09:23→21:40)
[2020-09-20] MEDS: MAGNESIUM 2 G PREMIX 50 ML IV SCH (09:31)
[2020-09-20] MEDS: SODIUM CHLORIDE 0.45% 1,000 ML IV SCH ×2 (09:33→21:26)
[2020-09-20 12:00] VITALS: BP 119/60
[2020-09-20 16:00] VITALS: BP 121/70
[2020-09-20 20:00] VITALS: BP 135/88
[2020-09-20] MEDS: IRON SUCROSE COMPLEX 100 MG/5 ML ML IV SCH (21:40)
[2020-09-21] VITALS: BP 125/63
[2020-09-21 04:00] VITALS: BP 127/68
[2020-09-21] MEDS: CEFEPIME 1,000 MG in DEXTROSE 5% WATER 50 ML IV SCH ×2 (05:49→06:00)
[2020-09-21] MEDS: METOPROLOL TARTRATE 5MG/5ML VIAL IV SCH ×2 (05:50→06:00)
[2020-09-21] MEDS: SODIUM CHLORIDE 0.45% 1,000 ML IV SCH (05:51)
[2020-09-21] MEDS: BLOOD SUGAR DIAGNOSTIC STRIP TEST SCH ×2 (06:13→11:45)
[2020-09-21 08:00] VITALS: BP 143/62
[2020-09-21] MEDS ORDERED: MAGNESIUM OXIDE 400MG TABLET PO SCH (09:00)
[2020-09-21] MEDS: INSULIN LISPRO 100 UNITS/ML SUBCUT SCH ×2 (10:17→13:05)
[2020-09-21] MEDS: PANTOPRAZOLE SODIUM 40 MG/VIAL IV SCH (10:18)
[2020-09-21] MEDS: METRONIDAZOLE 500MG TABLET PO SCH (10:18)
[2020-09-21 12:00] VITALS: BP 136/87
[2020-09-21] MEDS ORDERED: CLONIDINE 0.1MG TABLET PO SCH (13:00)
[2020-09-21 13:33] VITALS: BP 130/87
== END 2020-09-21 14:30 | disposition home health service (06) | DRG 871 ==
LOC: ER 10:02 → 5WST 11:29 → ENRESERV 14:54
PROVIDERS: ADMIT Family Medicine Adult Medicine; ATTEND Family Medicine Adult Medicine
PROC: 30233N1 Transfusion of Nonautologous Red Blood Cells into Peripheral Vein, Percutaneous Approach (ICD-10-PCS; principal; 2020-09-14)
PROC: 0DJD8ZZ Inspection of Lower Intestinal Tract, Via Natural or Artificial Opening Endoscopic (ICD-10-PCS; 2020-09-17)
DX: A41.50 Gram-negative sepsis, unspecified (principal); K57.31 Diverticulosis of large intestine without perforation or abscess with bleeding; E87.2 Acidosis; D62 Acute posthemorrhagic anemia; N39.0 Urinary tract infection, site not specified; D25.9 Leiomyoma of uterus, unspecified; E11.9 Type 2 diabetes mellitus without complications; E87.8 Other disorders of electrolyte and fluid balance, not elsewhere classified; I10 Essential (primary) hypertension; J43.9 Emphysema, unspecified; K76.0 Fatty (change of) liver, not elsewhere classified; Z20.822 Contact with and (suspected) exposure to COVID-19; D86.9 Sarcoidosis, unspecified; I27.20 Pulmonary hypertension, unspecified; R77.8 Other specified abnormalities of plasma proteins; Z86.16 Personal history of COVID-19; Z87.891 Personal history of nicotine dependence; Z87.01 Personal history of pneumonia (recurrent)
CPT/HCPCS: 36415; 71045; 74177; 78278; 80048; 80053; 81003; 82378; 82607; 82728; 82746; 82962; 83036; 83540; 83550; 83605; 83735; 84443; 84484; 85014; 85018; 85025; 86078; 86850; 86900; 86920; 87077; 87186; 87426; 93005; 93306; 99291; A9560; C1893; C9113; J0692; J0696; J1815; J2250; J3010; J3475; J3490; J7030; J7040; J7060; P9016; Q9967

== ENCOUNTER 2021-06-13 20:28 | Inpatient (IN) | payer MEDICARE, OTHER ==
[~2021-06-13] VITALS: Ht 157.5 cm; Wt 62.6 kg
[~2021-06-13 20:28] MED LIST: EMPA10TA MT; LEVO500T89 MT; METF500S7 PO; NATE120T PO
[2021-06-13 22:44] LABS: BASOPHILS % 0.7 % (0.0-2.0); EOSINOPHILS % 0.6 % (0.0-5.0); HEMATOCRIT. 31.1 % (36.0-48.0); LYMPHOCYTES % 27.1 % (20.0-50.0); MEAN CORPUSCULAR HEMOGLOBIN 25.1 pg (28.0-32.0); MEAN CORPUSCULAR VOLUME 77.9 fL (81.0-99.0); MEAN PLATELET VOLUME 8.1 fl (7.4-10.4); MONOCYTES % 9.2 % (2.0-8.0); NEUTROPHILS % 62.4 % (40.0-76.0); PLATELET 257 x1000/uL (130-400); RED BLOOD CELL COUNT 3.98 mill/uL (4.2-5.4); RED CELL DISTRIBUTION WIDTH 15.4 % (11.6-14.6)
[2021-06-13 22:48] LABS: CHLORIDE 105 mEq/L (98-107)
[2021-06-13 22:52] LABS: PROTHROMBIN TIME 10.6 sec (9.6-11.0)
[2021-06-13] MEDS ORDERED: PANTOPRAZOLE SODIUM 40 MG/VIAL IV STA (23:24)
[2021-06-13] MEDS ORDERED: SODIUM CHLORIDE 0.9% 500 ML IV ONE (23:30)
[2021-06-13 23:34] LABS: CLARITY URINE CLEAR (CLEAR); COLOR URINE YELLOW (YELLOW); KETONES URINE TRACE (NEGATIVE); LEUKOCYTE ESTERASE URINE TRACE (NEGATIVE); NITRITE URINE NEGATIVE (NEGATIVE); OCCULT BLOOD URINE NEGATIVE (NEGATIVE); PROTEIN URINE NEGATIVE (NEGATIVE); SPECIFIC GRAVITY URINE 1.023 (1.005-1.030); UROBILINOGEN URINE 0.2 E.U./dL (0.2-1.0)
[2021-06-14] MEDS ORDERED: CEFTRIAXONE 1 G PREMIX 50 ML IV ONE (03:00)
[2021-06-14] MEDS ORDERED: ONDANSETRON HCL 4MG/2ML INJ IV PRN (08:45)
[2021-06-14] MEDS ORDERED: MAGNESIUM/ALUMINUM HYDROXIDE/SIMETHICONE 30ML UDC PO PRN (08:45)
[2021-06-14] MEDS ORDERED: CLONIDINE 0.1MG TABLET PO PRN (08:45)
[2021-06-14] MEDS ORDERED: DOCUSATE SODIUM 100MG CAPSULE PO PRN (08:45)
[2021-06-14] MEDS ORDERED: GUAIFENESIN 200MG/10ML SUGAR FREE UDC PO PRN (08:45)
[2021-06-14] MEDS ORDERED: ACETAMINOPHEN 325MG TABLET PO PRN ×2 (08:45)
[2021-06-14 15:42] VITALS: BP 127/64
[2021-06-14 15:55] VITALS: BP 110/69
[2021-06-14] MEDS ORDERED: METF-874 MT (16:12)
[2021-06-14] MEDS ORDERED: INSULIN (16:12)
[2021-06-14] MEDS ORDERED: DEXTROSE 50% WATER 50ML SYRINGE IV PRN ×2 (17:00→21:15)
[2021-06-14] MEDS ORDERED: BLOOD SUGAR DIAGNOSTIC STRIP TEST SCH (17:30)
[2021-06-14] MEDS ORDERED: INSULIN LISPRO 100 UNITS/ML SUBCUT SCH (18:00)
[2021-06-14] MEDS: BLOOD SUGAR DIAGNOSTIC STRIP TEST SCH ×2 (18:24→21:00)
[2021-06-14] MEDS: METFORMIN HCL 850MG TABLET PO SCH (18:47)
[2021-06-14] MEDS: NATEGLINIDE 60MG TABLET PO SCH (18:47)
[2021-06-14 19:36] LABS: CHLORIDE 110 mEq/L (98-107)
[2021-06-14 19:41] LABS: LDL CHOLESTEROL 46 mg/dL (5-100)
[2021-06-14 19:43] LABS: HDL CHOLESTEROL 72 mg/dL (40-59); TOTAL IRON BINDING CAPACITY 282 ug/dL (250-450)
[2021-06-14 19:45] LABS: CREATINE KINASE 69 IU/L (26-192)
[2021-06-14 19:53] LABS: BASOPHILS % 0.5 % (0.0-2.0); EOSINOPHILS % 0.5 % (0.0-5.0); FOLIC ACID (FOLATE) SERUM 16.4 ng/mL (>5.38); HEMATOCRIT. 24.5 % (36.0-48.0); LYMPHOCYTES % 27.3 % (20.0-50.0); MEAN PLATELET VOLUME 8.3 fl (7.4-10.4); MONOCYTES % 8.8 % (2.0-8.0); NEUTROPHILS % 62.9 % (40.0-76.0); PLATELET 227 x1000/uL (130-400); RED BLOOD CELL COUNT 3.19 mill/uL (4.2-5.4); RED CELL DISTRIBUTION WIDTH 14.9 % (11.6-14.6)
[2021-06-14 20:00] VITALS: BP 111/65
[2021-06-14] MEDS: INSULIN LISPRO 100 UNITS/ML SUBCUT SCH (22:07)
[2021-06-15] VITALS (12 sets, daily range): BP systolic 91–141; BP diastolic 42–75
[2021-06-15] MEDS: PANTOPRAZOLE SODIUM 40 MG/VIAL IV SCH ×2 (00:34→14:56)
[2021-06-15 00:45] LABS: HEMATOCRIT 21.7 % (36.0-48.0); HEMOGLOBIN 7.2 g/dL (12.0-16.0)
[2021-06-15] MEDS: NATEGLINIDE 60MG TABLET PO SCH ×3 (08:21→18:45)
[2021-06-15] MEDS: METFORMIN HCL 850MG TABLET PO SCH ×2 (08:21→18:45)
[2021-06-15] MEDS: BLOOD SUGAR DIAGNOSTIC STRIP TEST SCH ×4 (08:21→21:45)
[2021-06-15] MEDS: INSULIN LISPRO 100 UNITS/ML SUBCUT SCH ×4 (09:17→21:46)
[2021-06-15 10:01] LABS: BASOPHILS % 0.7 % (0.0-2.0); EOSINOPHILS % 1.1 % (0.0-5.0); HEMATOCRIT. 27.8 % (36.0-48.0); HEMOGLOBIN. 9.1 g/dL (12.0-16.0); LYMPHOCYTES % 23.5 % (20.0-50.0); MEAN CORPUSCULAR HEMOGLOBIN 25.9 pg (28.0-32.0); MEAN CORPUSCULAR VOLUME 79.2 fL (81.0-99.0); MEAN PLATELET VOLUME 8.2 fl (7.4-10.4); MONOCYTES % 7.7 % (2.0-8.0); PLATELET 194 x1000/uL (130-400); RED CELL DISTRIBUTION WIDTH 15.7 % (11.6-14.6)
[2021-06-15 10:08] LABS: PROTHROMBIN TIME 10.9 sec (9.6-11.0)
[2021-06-15 10:12] LABS: CHLORIDE 110 mEq/L (98-107)
[2021-06-15 15:17] LABS: HEMATOCRIT 28.7 % (36.0-48.0); HEMOGLOBIN 9.5 g/dL (12.0-16.0)
[2021-06-15 18:37] LABS: HEMATOCRIT 28.6 % (36.0-48.0); HEMOGLOBIN 9.4 g/dL (12.0-16.0)
[2021-06-16 00:02] VITALS: BP 91/54
[2021-06-16 00:56] LABS: HEMATOCRIT 24.8 % (36.0-48.0); HEMOGLOBIN 8.2 g/dL (12.0-16.0)
[2021-06-16] MEDS: PANTOPRAZOLE SODIUM 40 MG/VIAL IV SCH ×2 (01:29→13:05)
[2021-06-16 04:04] VITALS: BP 92/50
[2021-06-16 06:32] LABS: BASOPHILS % 0.6 % (0.0-2.0); EOSINOPHILS % 0.8 % (0.0-5.0); HEMOGLOBIN. 7.7 g/dL (12.0-16.0); LYMPHOCYTES % 22.9 % (20.0-50.0); MEAN CORPUSCULAR HEMOGLOBIN 26.4 pg (28.0-32.0); MEAN CORPUSCULAR VOLUME 78.7 fL (81.0-99.0); MONOCYTES % 8.8 % (2.0-8.0); NEUTROPHILS % 66.9 % (40.0-76.0); PLATELET 206 x1000/uL (130-400); RED BLOOD CELL COUNT 2.92 mill/uL (4.2-5.4); RED CELL DISTRIBUTION WIDTH 15.5 % (11.6-14.6)
[2021-06-16] MEDS: BLOOD SUGAR DIAGNOSTIC STRIP TEST SCH ×4 (07:30→21:25)
[2021-06-16 08:24] VITALS: BP 103/67
[2021-06-16] MEDS: NATEGLINIDE 60MG TABLET PO SCH ×3 (08:38→17:10)
[2021-06-16] MEDS: METFORMIN HCL 850MG TABLET PO SCH ×2 (08:38→17:10)
[2021-06-16] MEDS: INSULIN LISPRO 100 UNITS/ML SUBCUT SCH ×4 (08:40→21:59)
[2021-06-16 12:26] VITALS: BP 119/41
[2021-06-16 13:49] LABS: CHLORIDE 112 mEq/L (98-107)
[2021-06-16 13:51] LABS: HEMATOCRIT 24.6 % (36.0-48.0); HEMOGLOBIN 8.1 g/dL (12.0-16.0)
[2021-06-16 15:30] VITALS: BP 126/71
[2021-06-16 17:45] LABS: HEMATOCRIT 23.6 % (36.0-48.0); HEMOGLOBIN 7.8 g/dL (12.0-16.0)
[2021-06-16 20:00] VITALS: BP 114/80
[2021-06-16 20:42] LABS: HEMATOCRIT 24.1 % (36.0-48.0); HEMOGLOBIN 7.9 g/dL (12.0-16.0)
[2021-06-16 20:55] LABS: CHLORIDE 109 mEq/L (98-107)
[2021-06-16] MEDS: INSULIN GLARGINE UD 100 UNITS/ML SYR SUBCUT SCH (21:59)
[2021-06-17] VITALS: BP 96/48
[2021-06-17 02:06] LABS: HEMATOCRIT 23.2 % (36.0-48.0); HEMOGLOBIN 7.6 g/dL (12.0-16.0)
[2021-06-17 02:09] LABS: CHLORIDE 110 mEq/L (98-107)
[2021-06-17 04:00] VITALS: BP 90/57
[2021-06-17 06:21] LABS: HEMATOCRIT 23.1 % (36.0-48.0); HEMOGLOBIN 7.6 g/dL (12.0-16.0)
[2021-06-17 06:36] LABS: CHLORIDE 110 mEq/L (98-107)
[2021-06-17 08:00] VITALS: BP 93/67
[2021-06-17] MEDS: INSULIN LISPRO 100 UNITS/ML SUBCUT SCH ×4 (08:00→21:40)
[2021-06-17] MEDS: BLOOD SUGAR DIAGNOSTIC STRIP TEST SCH ×4 (08:08→21:08)
[2021-06-17 12:00] VITALS: BP 107/59
[2021-06-17 12:42] LABS: HEMATOCRIT 23.3 % (36.0-48.0); HEMOGLOBIN 7.7 g/dL (12.0-16.0)
[2021-06-17 12:46] LABS: CHLORIDE 109 mEq/L (98-107)
[2021-06-17 16:00] VITALS: BP 114/76
[2021-06-17 20:00] VITALS: BP 86/41
[2021-06-17 20:20] LABS: HEMATOCRIT 22.9 % (36.0-48.0); HEMOGLOBIN 7.6 g/dL (12.0-16.0)
[2021-06-17 20:49] LABS: CHLORIDE 109 mEq/L (98-107)
[2021-06-17] MEDS: INSULIN GLARGINE UD 100 UNITS/ML SYR SUBCUT SCH (21:40)
[2021-06-18] VITALS (8 sets, daily range): BP systolic 97–115; BP diastolic 54–89
[2021-06-18 01:00] LABS: CHLORIDE 109 mEq/L (98-107)
[2021-06-18 01:12] LABS: HEMOGLOBIN 6.9 g/dL (12.0-16.0)
[2021-06-18 01:13] LABS: HEMATOCRIT 20.9 % (36.0-48.0)
[2021-06-18 06:06] LABS: HEMATOCRIT 24.5 % (36.0-48.0); HEMOGLOBIN 8.3 g/dL (12.0-16.0)
[2021-06-18 06:12] LABS: CHLORIDE 110 mEq/L (98-107)
[2021-06-18] MEDS: BLOOD SUGAR DIAGNOSTIC STRIP TEST SCH ×2 (07:30→12:20)
[2021-06-18] MEDS: INSULIN LISPRO 100 UNITS/ML SUBCUT SCH ×2 (08:00→12:47)
[2021-06-18 13:16] LABS: HEMATOCRIT 26.3 % (36.0-48.0); HEMOGLOBIN 8.8 g/dL (12.0-16.0)
[2021-06-18 14:24] LABS: CHLORIDE 108 mEq/L (98-107)
== END 2021-06-18 17:00 | disposition home or self-care (01) | DRG 378 ==
LOC: ER 20:28 → 5EST 06-14 02:48 → ENRESERV 06-14 10:02 → CANRESERV 06-14 10:02 → SUPCPDRO 06-14 10:54 → ENRESERV 06-14 12:25 → 5EST 06-16 16:11
PROVIDERS: ADMIT Family Medicine Adult Medicine; ATTEND Family Medicine Adult Medicine
PROC: 30233N1 Transfusion of Nonautologous Red Blood Cells into Peripheral Vein, Percutaneous Approach (ICD-10-PCS; principal; 2021-06-15)
DX: K92.1 Melena (principal); D62 Acute posthemorrhagic anemia; I11.0 Hypertensive heart disease with heart failure; N39.0 Urinary tract infection, site not specified; D86.9 Sarcoidosis, unspecified; E11.9 Type 2 diabetes mellitus without complications; I25.10 Atherosclerotic heart disease of native coronary artery without angina pectoris; K21.9 Gastro-esophageal reflux disease without esophagitis; R00.0 Tachycardia, unspecified; R00.2 Palpitations; I27.21 Secondary pulmonary arterial hypertension; I50.9 Heart failure, unspecified; J44.9 Chronic obstructive pulmonary disease, unspecified; Z83.3 Family history of diabetes mellitus; Z87.891 Personal history of nicotine dependence; K57.30 Diverticulosis of large intestine without perforation or abscess without bleeding
CPT/HCPCS: 36415; 71045; 80048; 80053; 80061; 81003; 82550; 82607; 82728; 82746; 82962; 83036; 83540; 83550; 83735; 84443; 84484; 85014; 85018; 85025; 85044; 85384; 86850; 86900; 86920; 93005; 93306; 97162; 97165; 99285; C9113; J0696; J1815; J7040; P9016

== ENCOUNTER 2024-11-06 12:01 | Inpatient (IN) | payer MEDICARE, OTHER ==
[~2024-11-06] VITALS: Ht 170.2 cm; Wt 67.2 kg
[~2024-11-06 12:01] MED LIST changes: +INSULIN; +LEVO-65 MT; -LEVO500T89 MT; +METF-1150 MT; -METF500S7 PO; +METF500S9 PO; -NATE120T PO; +NATE120T9 PO
[2024-11-06 12:03] VITALS: O2SAT 99
[2024-11-06 12:41] LABS: BASOPHILS % 0.5 % (0.0-2.0); EOSINOPHILS % 0.3 % (0.0-5.0); HEMATOCRIT. 33.2 % (36.0-48.0); HEMOGLOBIN. 10.3 g/dL (12.0-16.0); LYMPHOCYTES % 12.3 % (20.0-50.0); MEAN PLATELET VOLUME 8.0 fl (7.4-10.4); MONOCYTES % 5.7 % (2.0-8.0); NEUTROPHILS % 81.2 % (40.0-76.0); PLATELET 303 x1000/uL (130-400); RED BLOOD CELL COUNT 4.42 mill/uL (4.2-5.4); RED CELL DISTRIBUTION WIDTH 18.6 % (11.6-14.6)
[2024-11-06 12:54] LABS: INR 1.0
[2024-11-06 12:55] LABS: CREATININE 1.4 mg/dL (0.6-1.0)
[2024-11-06 12:56] LABS: ETHANOL BLOOD < 10 mg/dL (<10); UREA NITROGEN BLOOD 17 mg/dL (9-23)
[2024-11-06 12:57] LABS: ASPARTATE AMINOTRANSFERASE 16 IU/L (<34)
[2024-11-06 12:58] LABS: BILIRUBIN DIRECT 0.2 mg/dL (<=3.0); BILIRUBIN TOTAL 0.7 mg/dL (0.1-1.0); PROTEIN TOTAL 7.5 g/dL (6.0-8.3); TROPONIN I HIGH SENSITIVITY 10 ng/L (3.0-34)
[2024-11-06] MEDS: SODIUM CHLORIDE 0.9% 1,000 ML IV ONE (13:15)
[2024-11-06] MEDS: PANTOPRAZOLE 80 MG in SODIUM CHLORIDE 0.9% 100 ML IV ONE (13:15)
[2024-11-06] MEDS: IOHEXOL-350 100 ML BOTTLE ONE (14:52)
[2024-11-06] MEDS ORDERED: DEXTROSE 50% WATER 50ML SYRINGE IV PRN (15:45)
[2024-11-06] MEDS: DEXT 5%/0.45% NACL 1000ML 1,000 ML IV SCH (15:45)
[2024-11-06] MEDS ORDERED: CLONIDINE 0.1MG TABLET PO PRN (15:45)
[2024-11-06] MEDS: BLOOD SUGAR DIAGNOSTIC STRIP TEST SCH (17:12)
[2024-11-06 18:18] LABS: CLARITY URINE CLOUDY (CLEAR); GLUCOSE URINE 3+ (NEGATIVE); KETONES URINE 1+ (NEGATIVE); LEUKOCYTE ESTERASE URINE 1+ (NEGATIVE); NITRITE URINE NEGATIVE (NEGATIVE); OCCULT BLOOD URINE NEGATIVE (NEGATIVE); PH URINE 5.0 (4.5-8.0); PROTEIN URINE NEGATIVE (NEGATIVE); SPECIFIC GRAVITY URINE 1.043 (1.005-1.030); UROBILINOGEN URINE 0.2 E.U./dL (0.2-1.0)
[2024-11-06 18:25] LABS: *AMPHETAMINES SCREEN URINE NEGATIVE (NEGATIVE); *BARBITURATES SCREEN URINE NEGATIVE (NEGATIVE); *BENZODIAZEPINES SCREEN URINE NEGATIVE (NEGATIVE); *COCAINE SCREEN URINE NEGATIVE (NEGATIVE); CANNABINOID URINE SCREEN NEGATIVE (NEGATIVE); ECSTASY MDMA SCREEN URINE NEGATIVE (NEGATIVE); METHADONE URINE SCREEN NEGATIVE (NEGATIVE); OPIATES URINE SCREEN NEGATIVE (NEGATIVE); PHENCYCLIDINE URINE SCREEN NEGATIVE (NEGATIVE)
[2024-11-06] MEDS: INSULIN LISPRO 100 UNITS/ML SUBCUT SCH (18:27)
[2024-11-06 18:47] LABS: COLOR URINE STRAW (YELLOW)
[2024-11-06 18:50] LABS: BACTERIA URINE 1+; RBC URINE NONE SEEN /hpf (0-2); SQUAMOUS EPITHELIAL CELL URINE FEW /lpf (RARE/1+); YEAST URINE 4+
[2024-11-07] VITALS: BP 99/57; PULSE 104; RESP 18; TEMP 36.6; TEMP 36.6404; O2SAT 96
[2024-11-07 08:35] VITALS: BP 101/51; PULSE 90; RESP 18; TEMP 36.6; O2SAT 98
[2024-11-07 12:00] VITALS: BP 145/72; PULSE 100; RESP 20; TEMP 36.5; O2SAT 98
[2024-11-07 16:39] VITALS: BP 128/57; PULSE 100; RESP 20; TEMP 37.2; O2SAT 98
[2024-11-07 16:59] LABS: BASOPHILS % 0.6 % (0.0-2.0); EOSINOPHILS % 1.0 % (0.0-5.0); HEMATOCRIT. 26.9 % (36.0-48.0); HEMOGLOBIN. 8.4 g/dL (12.0-16.0); LYMPHOCYTES % 21.1 % (20.0-50.0); MEAN PLATELET VOLUME 8.5 fl (7.4-10.4); MONOCYTES % 7.6 % (2.0-8.0); NEUTROPHILS % 69.7 % (40.0-76.0); PLATELET 278 x1000/uL (130-400); RED BLOOD CELL COUNT 3.52 mill/uL (4.2-5.4); RED CELL DISTRIBUTION WIDTH 19.2 % (11.6-14.6)
[2024-11-07 17:24] LABS: FOLIC ACID (FOLATE) SERUM 14.32 ng/mL (>5.38); VITAMIN B12 SERUM 722 pg/mL (211-911)
[2024-11-07 20:00] VITALS: BP 119/69; PULSE 99; RESP 20; TEMP 36.6; O2SAT 98
[2024-11-08] VITALS: BP 120/81; PULSE 96; RESP 19; TEMP 36.4; O2SAT 99
[2024-11-08 04:00] VITALS: BP 107/67; PULSE 91; RESP 18; TEMP 36.4; O2SAT 98
[2024-11-08 05:37] LABS: CREATININE 1.1 mg/dL (0.6-1.0)
[2024-11-08 05:41] LABS: UREA NITROGEN BLOOD 21.0 mg/dL (9-23)
[2024-11-08 07:22] LABS: BASOPHILS % 0.6 % (0.0-2.0); EOSINOPHILS % 2.5 % (0.0-5.0); HEMATOCRIT. 23.3 % (36.0-48.0); HEMOGLOBIN. 7.4 g/dL (12.0-16.0); LYMPHOCYTES % 21.1 % (20.0-50.0); MEAN PLATELET VOLUME 8.3 fl (7.4-10.4); MONOCYTES % 9.2 % (2.0-8.0); NEUTROPHILS % 66.6 % (40.0-76.0); PLATELET 231 x1000/uL (130-400); RED BLOOD CELL COUNT 3.12 mill/uL (4.2-5.4); RED CELL DISTRIBUTION WIDTH 18.5 % (11.6-14.6)
[2024-11-08 08:00] VITALS: BP 115/70; PULSE 95; RESP 18; TEMP 36.4; O2SAT 98
[2024-11-08] MEDS ORDERED: MEDICATION NOT ON FORMULARY EA (Metformin HCl (Metformin HCl ER) 1 TAB) MT SCH (10:00)
[2024-11-08] MEDS: EMPAGLIFLOZIN 10MG TABLET PO SCH (10:22)
[2024-11-08 12:00] VITALS: BP 111/69; PULSE 97; RESP 18; TEMP 36.2; O2SAT 98
[2024-11-08] MEDS: PANTOPRAZOLE SODIUM 40 MG/VIAL IV SCH (15:50)
[2024-11-08 16:00] VITALS: BP 116/69; PULSE 94; RESP 18; TEMP 36.4; O2SAT 98
[2024-11-08] MEDS: METFORMIN HCL 500MG TABLET PO SCH (17:54)
[2024-11-08 20:00] VITALS: BP 153/79; PULSE 104; RESP 18; TEMP 36.4; O2SAT 100
[2024-11-09] VITALS (8 sets, daily range): BP systolic 97–134; BP diastolic 49–77; PULSE 64–103; RESP 15–19; TEMP 36–36.8; O2SAT 95–100
[2024-11-09 06:49] LABS: BASOPHILS % 0.5 % (0.0-2.0); EOSINOPHILS % 1.9 % (0.0-5.0); HEMATOCRIT. 21.2 % (36.0-48.0); LYMPHOCYTES % 25.0 % (20.0-50.0); MEAN PLATELET VOLUME 8.5 fl (7.4-10.4); MONOCYTES % 7.8 % (2.0-8.0); NEUTROPHILS % 64.8 % (40.0-76.0); PLATELET 249 x1000/uL (130-400); RED BLOOD CELL COUNT 2.85 mill/uL (4.2-5.4); RED CELL DISTRIBUTION WIDTH 18.2 % (11.6-14.6)
[2024-11-09 06:55] LABS: HEMOGLOBIN. 6.7 g/dL (12.0-16.0)
[2024-11-09 06:58] LABS: CREATININE 1.1 mg/dL (0.6-1.0); UREA NITROGEN BLOOD 16.0 mg/dL (9-23)
[2024-11-10] VITALS: BP 112/59; PULSE 92; RESP 19; TEMP 36.3; O2SAT 95
[2024-11-10 04:00] VITALS: BP 124/62; PULSE 88; RESP 18; TEMP 36.8; O2SAT 95
[2024-11-10 08:03] VITALS: BP 114/76; PULSE 92; RESP 18; TEMP 36.2; O2SAT 99
[2024-11-10 11:02] LABS: BASOPHILS % 0.4 % (0.0-2.0); EOSINOPHILS % 1.4 % (0.0-5.0); HEMATOCRIT. 26.6 % (36.0-48.0); LYMPHOCYTES % 19.8 % (20.0-50.0); MEAN PLATELET VOLUME 7.9 fl (7.4-10.4); MONOCYTES % 7.6 % (2.0-8.0); NEUTROPHILS % 70.8 % (40.0-76.0); PLATELET 293 x1000/uL (130-400); RED BLOOD CELL COUNT 3.39 mill/uL (4.2-5.4); RED CELL DISTRIBUTION WIDTH 20.2 % (11.6-14.6)
[2024-11-10 11:14] LABS: HEMOGLOBIN. 8.7 g/dL (12.0-16.0)
[2024-11-10 11:27] LABS: CREATININE 1.2 mg/dL (0.6-1.0); UREA NITROGEN BLOOD 14.0 mg/dL (9-23)
[2024-11-10 11:58] VITALS: BP 102/59; PULSE 83; RESP 18; TEMP 36.2; O2SAT 99
[2024-11-10 16:08] VITALS: BP 164/82; PULSE 107; RESP 20; TEMP 36.6; O2SAT 100
[2024-11-10 20:00] VITALS: BP 91/45; PULSE 103; RESP 18; TEMP 36.7; O2SAT 97
[2024-11-11] VITALS: BP 99/54; PULSE 88; RESP 16; TEMP 36.6; O2SAT 99
[2024-11-11 04:00] VITALS: BP 106/46; PULSE 89; RESP 18; TEMP 36.5; O2SAT 100
[2024-11-11 06:19] LABS: CREATININE 1.2 mg/dL (0.6-1.0); UREA NITROGEN BLOOD 19.0 mg/dL (9-23)
[2024-11-11 06:53] LABS: BASOPHILS % 0.7 % (0.0-2.0); EOSINOPHILS % 1.3 % (0.0-5.0); HEMATOCRIT. 23.3 % (36.0-48.0); HEMOGLOBIN. 7.6 g/dL (12.0-16.0); LYMPHOCYTES % 20.8 % (20.0-50.0); MEAN PLATELET VOLUME 8.0 fl (7.4-10.4); MONOCYTES % 8.9 % (2.0-8.0); NEUTROPHILS % 68.3 % (40.0-76.0); PLATELET 286 x1000/uL (130-400); RED BLOOD CELL COUNT 2.98 mill/uL (4.2-5.4); RED CELL DISTRIBUTION WIDTH 20.4 % (11.6-14.6)
[2024-11-11 08:00] VITALS: BP 110/46; PULSE 90; RESP 20; TEMP 36.8; O2SAT 100
[2024-11-11 12:00] VITALS: BP 120/52; PULSE 90; RESP 18; TEMP 37; O2SAT 100
[2024-11-11 16:00] VITALS: BP 105/50; PULSE 90; RESP 16; TEMP 36.8; O2SAT 100
[2024-11-11 20:00] VITALS: BP 110/63; PULSE 90; RESP 18; TEMP 37; O2SAT 97
[2024-11-12] VITALS (7 sets, daily range): BP systolic 101–131; BP diastolic 44–80; PULSE 84–114; RESP 16–20; TEMP 36.1–37.2; O2SAT 95–97
[2024-11-12] MEDS ORDERED: SODIUM CHLORIDE 0.9% 500 ML IV ONE (18:45)
[2024-11-12] MEDS: LORAZEPAM 0.5MG TABLET PO SCH (19:15)
[2024-11-13] VITALS: BP 106/50; PULSE 97; RESP 18; TEMP 36.1; O2SAT 97
[2024-11-13 04:00] VITALS: BP 106/54; PULSE 94; RESP 19; TEMP 36.2; O2SAT 97
[2024-11-13 08:00] VITALS: BP 103/63; PULSE 85; RESP 20; TEMP 36.6; O2SAT 98
[2024-11-13 12:00] VITALS: BP 101/61; PULSE 84; RESP 18; TEMP 36.4; O2SAT 97
[2024-11-13] MEDS: LACTULOSE 20G/30ML UDC PO SCH (15:41)
[2024-11-13 16:00] VITALS: BP 97/63; PULSE 92; RESP 20; TEMP 36.8; O2SAT 96
[2024-11-13 20:11] VITALS: BP 95/43; PULSE 98; RESP 20; TEMP 35.9; O2SAT 99
[2024-11-13 22:11] LABS: BASOPHILS % 0.8 % (0.0-2.0); EOSINOPHILS % 1.2 % (0.0-5.0); HEMATOCRIT. 21.6 % (36.0-48.0); LYMPHOCYTES % 16.7 % (20.0-50.0); MEAN PLATELET VOLUME 8.1 fl (7.4-10.4); MONOCYTES % 9.3 % (2.0-8.0); NEUTROPHILS % 72.0 % (40.0-76.0); PLATELET 265 x1000/uL (130-400); RED BLOOD CELL COUNT 2.58 mill/uL (4.2-5.4); RED CELL DISTRIBUTION WIDTH 21.5 % (11.6-14.6)
[2024-11-13 22:24] LABS: HEMOGLOBIN. 6.6 g/dL (12.0-16.0)
[2024-11-14] VITALS (8 sets, daily range): BP systolic 100–141; BP diastolic 42–71; PULSE 82–96; RESP 16–19; TEMP 36.1–36.7; O2SAT 96–99
[2024-11-14 10:55] LABS: BASOPHILS % 0.6 % (0.0-2.0); EOSINOPHILS % 0.6 % (0.0-5.0); HEMATOCRIT. 29.3 % (36.0-48.0); HEMOGLOBIN. 9.0 g/dL (12.0-16.0); LYMPHOCYTES % 15.9 % (20.0-50.0); MEAN PLATELET VOLUME 7.7 fl (7.4-10.4); MONOCYTES % 9.5 % (2.0-8.0); NEUTROPHILS % 73.4 % (40.0-76.0); PLATELET 343 x1000/uL (130-400); RED BLOOD CELL COUNT 3.67 mill/uL (4.2-5.4); RED CELL DISTRIBUTION WIDTH 20.3 % (11.6-14.6)
[2024-11-14 11:14] LABS: CREATININE 1.3 mg/dL (0.6-1.0); UREA NITROGEN BLOOD 17.0 mg/dL (9-23)
== END 2024-11-14 18:46 | disposition home or self-care (01) | DRG 379 ==
LOC: ER 12:01 → 7WST 14:36 → ENRESERV 22:16
PROVIDERS: ADMIT Family Medicine Adult Medicine; ATTEND Family Medicine Adult Medicine
PROC: 30233N1 Transfusion of Nonautologous Red Blood Cells into Peripheral Vein, Percutaneous Approach (ICD-10-PCS; principal; 2024-11-09)
DX: K57.91 Diverticulosis of intestine, part unspecified, without perforation or abscess with bleeding (principal); J43.9 Emphysema, unspecified; I10 Essential (primary) hypertension; D50.9 Iron deficiency anemia, unspecified; R00.0 Tachycardia, unspecified; E11.9 Type 2 diabetes mellitus without complications; Z55.6 Problems related to health literacy; Z79.899 Other long term (current) drug therapy
CPT/HCPCS: 36415; 74174; 80048; 80076; 80305; 80320; 81003; 82270; 82607; 82728; 82746; 82962; 83036; 83540; 83550; 84443; 84484; 85014; 85018; 85025; 85044; 86850; 86900; 86920; 87015; 87045; 87427; 87449; 87493; 89055; 93005; 99285; A4606; J1815; J2470; J7030; J7050; P9016; Q9967; G0480